=== PATIENT | male | born 1970 | race African-American/Black ===

== ENCOUNTER 2017-06-22 08:00 | Outpatient (RCR) | payer OTHER ==
[2015-03-30 12:35] VITALS: Ht 172.7 cm; Wt 105.3 kg
[2017-04-06 08:23] VITALS: BP 161/111
[2017-04-06] MEDS: NS(*) 0.9% 1000 ML BAG 1,000 ML IV PRN (15:28)
[2017-04-20] MEDS: NS(*) 0.9% 1000 ML BAG 1,000 ML IV PRN (11:00)
[2017-04-20 11:10] VITALS: BP 141/91
--- NOTE | 2017-04-22 05:01 | ONCOLOGY FOLLOW UP NOTE ---
EVENT DATE: April 20, 2017 CHIEF COMPLAINT/REASON FOR VISIT Fernando is a very pleasant 46-year-old gentleman with sickle cell SC disease here for followup post hospitalization. HISTORY OF PRESENT ILLNESS Fernando returns. I saw him in early February and he was doing quite well, but had developed multiple sickle cell exacerbations shortly after that. I believe he has gained some weight, developing worsening of his sugars with known type 2 diabetes, as well as concerns for obstructive sleep apnea. He had a sleep study in the spring which was inconclusive, but he has gained some more weight. We did recommend CPAP while he was in the hospital, but he would not wear this. He did not think it made him feel any better. He currently rates his pain as a 7/10 and all over. I would like to refill his non-opiate medications to minimize the use of opiates. I feel he has been leaning on the opiates more recently. He does not feel ready to go back to work as he is worried he is having another exacerbation. He felt well when he was at lower altitude in [place], but has had trouble since coming back from visiting with his ENT there. The intervention did improve his throat, however. We are giving him fluids today and hopeful that this can avoid repeat hospitalization. PAST MEDICAL/SURGICAL HISTORY 1. Sickle cell anemia with crisis. 2. Hemoglobin SC disease. 3. Diabetes mellitus. 4. GERD. 5. Chronic pain due to orthopedic issues related to sickle cell disease. FAMILY HISTORY The patient had a sibling who from this disease. He has multiple other siblings with it. SOCIAL HISTORY The patient works at [employer]. Never smoker. Does not drink significant amount of alcohol. REVIEW OF SYSTEMS CONSTITUTIONAL: No fevers, chills. Positive pain crisis at this time. HEENT: No headache or vision changes. NEUROLOGICAL: Intermittent left arm numbness, unchanged. Good pulses. CARDIOVASCULAR: Intermittent edema, none currently. No chest pain, dyspnea on exertion today. RESPIRATORY: No shortness of breath, wheeze, cough. MUSCULOSKELETAL: Chronic pain in the hips and shoulders bilaterally. GASTROINTESTINAL: No nausea, vomiting. GENITOURINARY: No dysuria or hematuria. PSYCHIATRIC: No anxiety or depression. He is not his usual cheerful self and appears to be in some painful distress. ENDOCRINE: No heat or cold intolerance. SKIN: No concerning rashes or lesions. The remainder of the 14-point review of systems is otherwise negative. PHYSICAL EXAMINATION VITAL SIGNS: Blood pressure 141/91, pulse 80, respiratory rate 16, temperature 97.1 Fahrenheit, oxygen saturation 93% on room air. Pain 7/10, fatigue 6/10. GENERAL: In stable condition, resting comfortably in the chair. Mild to moderate painful distress. HEENT: Normocephalic, atraumatic. CARDIOVASCULAR: Regular rate and rhythm. LUNGS: Clear. MUSCULOSKELETAL: Bilateral chronic shoulder and hip pain. No focus of pain today. The pain is "all over." EXTREMITIES: No clubbing, cyanosis or significant edema. He has had trace edema in the past, but no major edema. Remainder of the physical exam otherwise unremarkable. IMPRESSION AND PLAN Fernando is a pleasant 46-year-old gentleman with the followin. Hemoglobin SC sickle cell disease. 2. Avascular necrosis in chronic pain in multiple joints due to number one. 3. Hot flashes of uncertain etiology. His TSH and testosterone were unremarkable. 4. History of trace edema. Can use Lasix as needed. 5. Recent hospitalizations with sickle cell crisis. I believe he is having multiple contributors to flares including uncontrolled type 2 diabetes, obstructive sleep apnea, but no compliance with CPAP. He does not have a CPAP machine at home. 6. We will refill his monthly medications. He uses a fentanyl patch 100 mcg every three days, as well as Dilaudid 4 mg up to six times a day as needed. We will refill his Skelaxin, Celebrex and Benadryl as needed. He uses lorazepam as a sleeping aid and can take one to two pills for this. 7. I would like him to establish with primary care and we will make arrangements for this. I answered all of his many questions today. Meds refilled. Billing: Return visit level 4. Total time 30 minutes, counseling time 20. MTDD
[2017-05-25 08:18] VITALS: BP 138/88
--- NOTE | 2017-06-12 08:44 | ONCOLOGY FOLLOW UP NOTE ---
EVENT DATE: May 25, 2017 CHIEF COMPLAINT/REASON FOR VISIT Fernando is a pleasant 46-year-old gentleman with sickle cell SD disease, here for followup. HISTORY OF PRESENT ILLNESS Fernando returns. The patient has had multiple sickle cell exacerbations in 2017. I believe that he has gained some weight, developed some worsening of his blood sugar with known type 2 diabetes, as well as some concerns for mild obstructive sleep apnea. His sleep study in 2017 was inconclusive. We recommended CPAP, but he could not tolerate it or wear this. He did not think it made him feel any better. His poor sleep continues to be his chief complaint. He has trouble getting to sleep. He rates his pain at a 4/10 today, which is a good day for him. No recent exacerbations since last month, although he did have multiple exacerbations when he returned from a lower altitude in [place] in the fall of 2016. He has another planned trip in August, and we may consider giving more fluids around that time to prevent exacerbations. He also complains of swelling in his hands and feet and likes to take furosemide to help with this, however, this increases the risk of sickle cell exacerbations. We have discussed this and would like to try to minimize its use as much as possible. He is avoiding it. PAST MEDICAL/SURGICAL HISTORY 1. Sickle cell anemia with crisis. 2. Hemoglobin SC disease. 3. Diabetes mellitus. 4. GERD. 5. Chronic pain due to orthopedic issues related to sickle cell disease. FAMILY HISTORY The patient had a sibling who from this disease. He has multiple other siblings with it. SOCIAL HISTORY The patient works at [employer]. Never smoker. Does not drink significant amount of alcohol. REVIEW OF SYSTEMS CONSTITUTIONAL: No fevers, chills. No pain crisis at this time. HEENT: No headache, vision changes. NEUROLOGIC: Intermittent left arm numbness unchanged. He has excellent peripheral pulses in both arms. CARDIOVASCULAR: Intermittent edema. Some present in the hands after work today. No chest pain or dyspnea on exertion today. No chest syndrome today. RESPIRATORY: No shortness of breath, wheeze, cough. MUSCULOSKELETAL: Chronic pain in the hips and shoulders bilaterally, with known avascular necrosis. GASTROINTESTINAL: No nausea or vomiting. GENITOURINARY: No dysuria or hematuria. PSYCHIATRIC: No anxiety or depression. He is his usual cheerful self again today. ENDOCRINE: No heat or cold intolerance. SKIN: No concerning rashes or lesions. The remainder of the 14-point review of systems is otherwise negative. PHYSICAL EXAMINATION VITAL SIGNS: Blood pressure 138/88, pulse 79, respiratory rate 16, temperature 97.1 degrees Fahrenheit, oxygen saturation 92% on room air, weight 106.6 kg. Pain 4/10, fatigue 4/10. GENERAL: In stable condition, resting comfortably in the chair. HEENT: Normocephalic, atraumatic. CARDIOVASCULAR: Regular rate and rhythm. LUNGS: Clear. MUSCULOSKELETAL: Bilateral chronic shoulder and hip pain. EXTREMITIES: Trace edema in the hands. No edema in the legs today. No significant clubbing or cyanosis. The remainder of the full physical exam deferred today to the amount of time spent in counseling and coordination of care. IMPRESSION AND PLAN Fernando is a very pleasant 46-year-old gentleman with the following. 1. Hemoglobin SC sickle cell disease. 2. Avascular necrosis in chronic pain in multiple joints due to number one. 3. Hot flashes of uncertain etiology. His TSH and testosterone were unremarkable. 4. History of trace edema. Can use Lasix as needed. Would like him to avoid the Lasix as much as possible though as it could increase the risk of sickling. 5. Chronic pain. We will refill his pain medications today. He uses a fentanyl patch 100 mcg every three days, as well as Dilaudid 4 mg up to six times a day as needed. We have refilled his Skelaxin, Celebrex and Benadryl. 6. Insomnia. He uses lorazepam as a sleeping aid. He does not feel this is successful. He would like to try Ambien. I advised him he needs to be very careful with this as he could be more drowsy and at risk for falls or sleeping in and missing work. He expresses understanding about this. 7. I continue to want him to establish with primary care. I answered all of his questions today. Medications refilled. Billing: Return visit level 3. Total time 20 minutes, counseling time 15. MTDD
[~2017-06-22] VITALS: Ht 172.7 cm; Wt 105.3 kg
[~2017-06-22 08:00] MED LIST: AMOX1TAB9 PO; CELE-1 PO; CYCL10TA29 PO; DEXTROSE 5%(*) 100 ML BAG 100 ML IVPB PRN; DOCU-416 PO; FENT-19 TD; FENT-21 TD; FENT-23 TD; FENT1PAT40 TD; FOLI-68 PO; FURO20TA19 PO; HYDR-4309 PO; HYDR-5517 PO; HYDR1LIQ6 PO; HYDR25SU35 RC; HYDR25SU51 RC; HYDR2TAB74 PO; LIDO5T TP; LIDOCAINE/SOD BICARB 8.4% SYR ID PRN; LISI-362 PO; LORA-630 PO; MELO-207 PO; META800T18 PO; METF-410 PO; METHYLPRED PO; NS(*) 0.9% 100 ML BAG 100 ML IVPB PRN; OXYC-373 PO; OXYC-823 PO; OXYC-865 PO; OXYC-869 PO; OXYC20TA61 PO; OXYC5CAP21 PO; OXYC5TAB38 PO; PANT40TA65 PO; PROM-110 PO; ZOLP-1 PO; [UNRECOGNIZED DRUG - CODE] PO
[2017-06-22 08:29] VITALS: BP 135/95
[2017-06-22] MEDS ORDERED: FENT-23 TD (08:49)
[2017-06-22] MEDS ORDERED: LORA-630 PO (08:49)
[2017-06-22] MEDS ORDERED: HYDR-5517 PO (08:49)
[2017-06-22] MEDS ORDERED: NS(*) 0.9% 500 ML BAG 500 ML IV PRN (08:55)
[2017-06-22] MEDS ORDERED: ZOLP-1 PO (13:39)
[2017-06-23] MEDS ORDERED: ZOLP-1 PO (15:45)
--- NOTE | 2017-06-26 20:12 | ONCOLOGY FOLLOW UP NOTE ---
EVENT DATE: 06/22/2017 CHIEF COMPLAINT/REASON FOR VISIT Mr. Estevez is a pleasant 46-year-old gentleman with sickle cell SC disease here for followup. HISTORY OF PRESENT ILLNESS Fernando returns. The patient continues to have multiple sickle cell exacerbations in 2017. I believe this is due to obstructive sleep apnea, some weight gain and worsening of his blood sugars. His sleep study 2017 was considered inconclusive. We recommended a trial of CPAP, but he could not tolerate or wear this. He did not think it made him feel any better. The pain crises continue to be his biggest complaints. He also complains of trouble getting to sleep. He rates his pain at a 5/10 today, which is an average day for him. He was able to go to work, but had to push through. He has another trip planned for [place] in August around his birthday, and we may consider giving him more fluids around that time to prevent exacerbations. He does think the fluids make him feel slightly better and have less frequent exacerbations, so we may try this as a maintenance approach. We do have issues of swelling in his hands and feet at times, so this is a difficult balance. PAST MEDICAL/SURGICAL HISTORY 1. Sickle cell anemia with crisis. 2. Hemoglobin SC disease. 3. Diabetes mellitus. 4. GERD. 5. Chronic pain due to orthopedic issues related to sickle cell disease. FAMILY HISTORY The patient had a sibling who from this disease. He has multiple other siblings with it. SOCIAL HISTORY The patient works at [employer] Never smoker. Does not drink significant amount of alcohol. REVIEW OF SYSTEMS CONSTITUTIONAL: No fevers, chills. No pain crisis at this time. HEENT: No headache, vision changes. NEUROLOGIC: Intermittent left arm numbness unchanged. He has excellent peripheral pulses in both arms. CARDIOVASCULAR: Intermittent edema. Some present in the hands after work today. No chest pain or dyspnea on exertion today. No chest syndrome today. RESPIRATORY: No shortness of breath, wheeze, cough. MUSCULOSKELETAL: Chronic pain in the hips and shoulders bilaterally, with known avascular necrosis. GASTROINTESTINAL: No nausea or vomiting. GENITOURINARY: No dysuria or hematuria. PSYCHIATRIC: No anxiety or depression. He is his usual cheerful self again today. ENDOCRINE: No heat or cold intolerance. SKIN: No concerning rashes or lesions. The remainder of the 14-point review of systems is otherwise negative. PHYSICAL EXAMINATION VITAL SIGNS: Blood pressure 135/95, pulse 68, respiratory rate 16, temperature 97.6 Fahrenheit, oxygen saturation 93% on room air. Weight 105.3 kg. Pain 5/10 , fatigue 5/10. GENERAL: In stable condition, resting comfortably in the chair. HEENT: Normocephalic, atraumatic. MUSCULOSKELETAL: Bilateral chronic shoulder and hip pain unchanged. Some reduced range of motion, mild. EXTREMITIES: Trace edema in the hands and feet, improved compared to prior exams in 2017. The remainder of the full physical exam deferred today to amount of time spent in counseling and coordination of care. IMPRESSION AND PLAN Fernando is a very pleasant 46-year-old gentleman with the followin. Hemoglobin SC disease. 2. Avascular necrosis with chronic pain in multiple joints due to number one. 3. Hot flashes of unclear etiology with a normal thyroid stimulating hormone and testosterone. These have improved. 4. History of edema. Would like to avoid Lasix as it could increase the risk of sickle cell crisis. We have used Lasix in the past when the edema was significant. He does feel better when we give IV fluids, and we are going to try another trial of weekly IV fluids, but only a half liter instead of a full liter. 5. Chronic pain. We will refill his pain medications today. This includes a fentanyl patch 100 mcg every three days, as well as Dilaudid 4 mg up to six times a day as needed. 6. Insomnia. I answered all of his questions today. Medications refilled. Billing: Return visit level 4. Total time 30 minutes, counseling time 20. MTDD
--- NOTE | 2017-06-28 09:47 | ONCOLOGY FOLLOW UP NOTE ---
EVENT DATE: May 25, 2017 CHIEF COMPLAINT/REASON FOR VISIT Fernando is a pleasant 46-year-old gentleman with sickle cell SC disease here for followup. HISTORY OF PRESENT ILLNESS Fernando returns. The patient has had multiple sickle cell exacerbations in 2017. I believe that he has gained some weight, developed some worsening of his blood sugars with known type 2 diabetes, as well as some concerns for mild obstructive sleep apnea. His sleep study in 2017 was inconclusive. We recommended CPAP, but he could not tolerate or wear this. He did not think it made him feel any better. His poor sleep continues to be his chief complaint. He has trouble getting to sleep. He rates his pain at a 4/10, which is a good day for him. No recent exacerbations since last month, although he did have multiple exacerbations when he returned from a lower altitude in [place] in the fall of 2016. He has another planned trip in August. We may consider giving more fluids around that time to prevent exacerbations. He also complains of swelling in his hands and feet and likes to take furosemide to help with this, however, this increases the risk of sickle cell exacerbations. We discussed this and would like to try to minimize its use as much as possible. He is avoiding it. PAST MEDICAL/SURGICAL HISTORY 1. Sickle cell anemia with crisis. 2. Hemoglobin SC disease. 3. Diabetes mellitus. 4. GERD. 5. Chronic pain due to orthopedic issues related to sickle cell disease. FAMILY HISTORY The patient had a sibling who from this disease. He has multiple other siblings with it. SOCIAL HISTORY The patient works at [employer]. Never smoker. Does not drink significant amount of alcohol. REVIEW OF SYSTEMS CONSTITUTIONAL: No fevers, chills. No pain crisis at this time. HEENT: No headache or vision changes. NEUROLOGIC: Intermittent left arm numbness unchanged. He has excellent peripheral pulses in both arms. CARDIOVASCULAR: Intermittent edema, some present in the hands after work today. No chest pain, dyspnea on exertion today. No chest syndrome today. RESPIRATORY: No shortness of breath, wheeze, cough. MUSCULOSKELETAL: Chronic pain in the hips and shoulders bilaterally with known avascular necrosis. GASTROINTESTINAL: No nausea, vomiting. GENITOURINARY: No dysuria or hematuria. PSYCHIATRIC: No anxiety or depression. He is his usual cheerful self again today. ENDOCRINE: No heat or cold intolerance. SKIN: No concerning rashes lesions. The remainder of the 14-point review of systems is otherwise negative. PHYSICAL EXAMINATION VITAL SIGNS: Blood pressure 138/88, pulse 79, respiratory rate 16, temperature 97.1 degrees Fahrenheit, oxygen saturation 92% on room air. Weight 106.6 kg. Pain 4/10, fatigue 4/10. GENERAL: In stable condition, resting comfortably in the chair. HEENT: Normocephalic, atraumatic. CARDIOVASCULAR: Regular rate and rhythm. LUNGS: Clear. MUSCULOSKELETAL: Bilateral chronic shoulder and hip pain. EXTREMITIES: Trace edema in the hands. No edema in the legs today. No significant clubbing or cyanosis. Remainder of full physical exam deferred today to amount of time spent in counseling and coordination of care. IMPRESSION AND PLAN Fernando is a very pleasant 46-year-old gentleman with the followin. Hemoglobin SC sickle cell disease. 2. Avascular necrosis in chronic pain in multiple joints due to number one. 3. Hot flashes of uncertain etiology. His TSH and testosterone were unremarkable. 4. History of trace edema. Can use Lasix as needed.: Would like him to avoid the Lasix as much as possible though as it could increase the risk of sickling. 5. Chronic pain. We will refill his pain medications today. He uses a fentanyl patch 100 mcg every three days, as well as Dilaudid 4 mg up to six times a day as needed. We have refilled his Skelaxin, Celebrex and Benadryl. 6. Insomnia. He uses lorazepam as a sleeping aid. He does not feel this is successful. He would like to try Ambien. I advised him he needs to be very careful with this as he could be more drowsy and at risk for falls or sleeping in and missing work. He expresses understanding about this. 7. I continue to want him to establish with primary care. I answered all of his questions today. Medications refilled. Billing: Return visit level 3. Total time 20 minutes, counseling time 15. MTDD
== END 2017-07-02 ==
LOC: ONC 08:00
PROVIDERS: ATTEND Internal Medicine Medical Oncology
DX: D57.1 Sickle-cell disease without crisis (principal); I96 Gangrene, not elsewhere classified; G47.33 Obstructive sleep apnea (adult) (pediatric); G89.29 Other chronic pain
CPT/HCPCS: 96360; 96361; 99212; J7030; J7040

== ENCOUNTER 2017-10-19 13:27 | Outpatient (RCR) | payer BC, OTHER ==
[2015-03-30 12:35] VITALS: Ht 172.7 cm; Wt 102.3 kg
[2017-07-27 08:32] VITALS: BP 160/93
--- NOTE | 2017-07-28 09:12 | [facility] ONCOLOGY NOTE ---
DATE OF VISIT: July 27, 2017 CHIEF COMPLAINT/REASON FOR VISIT Mr. Estevez is a pleasant 46-year-old gentleman with sickle cell SC disease here for followup. HISTORY OF PRESENT ILLNESS Fernando returns. The patient continues to have frequent, multiple sickle cell exacerbations in 2016 and 2017. The increased frequency may be due to weight gain and obstructive sleep apnea as well as worsening of his blood sugars. His brother has the same type of sickle cell disease (SC disease) according to Fernando , and diabetic affects him as well. His sleep study in earlier 2016 was considered inconclusive, and I have arranged follow up with Dr. Caldwell for later this week. The patient is able to work today, however, he rates his pain at a 6/10 and feels that it is very close to needing to go the hospital. When he traveled to [place] late in 2016, he felt much better. He has another trip planned in August. When he returns back from these trips, he frequently has an exacerbation. PAST MEDICAL/SURGICAL HISTORY 1. Sickle cell anemia with crisis. 2. Hemoglobin SC disease. 3. Diabetes mellitus. 4. GERD. 5. Chronic pain due to orthopedic issues related to sickle cell disease. 6. Sleep disordered breathing and poor sleep. FAMILY HISTORY The patient had a sibling who from the disease as well as multiple siblings with it. SOCIAL HISTORY The patient works at [employer]. Never smoker. Denies significant alcohol use. REVIEW OF SYSTEMS CONSTITUTIONAL: No fevers, chills. Moderate pain at this time. HEENT: No headache, vision changes. EXTREMITIES: Intermittent edema. At times, it has been bothersome in the hands. No complaints about this today. NEUROLOGICAL: Intermittent left arm numbness unchanged. Good peripheral pulses and use of the arms. RESPIRATORY: No shortness of breath, wheeze, cough. MUSCULOSKELETAL: Chronic pain in the hips and shoulders with known avascular necrosis. GASTROINTESTINAL: No nausea or vomiting. GENITOURINARY: No dysuria or hematuria. PSYCHIATRIC: No anxiety or depression. ENDOCRINE: No heat or cold intolerance. SKIN: No concerning rashes or lesions. The remainder of the 14-point review of systems is otherwise negative. PHYSICAL EXAMINATION VITAL SIGNS: Blood pressure 160/93, pulse 94, respiratory rate 16, temperature 97.2 Fahrenheit, oxygen saturation 93% on room air. Weight 104.9 kg. Pain 6/10 , fatigue 6/10. GENERAL: Stable condition, resting comfortably in the chair. HEENT: Normocephalic, atraumatic. MUSCULOSKELETAL: Bilateral shoulder and hip pain unchanged. Some reduced range of motion mildly in the right shoulder. He has had surgery on that in 2017. EXTREMITIES: Trace edema in the hands and feet. Remainder of physical exam unremarkable. IMPRESSION AND PLAN Fernando is a pleasant 46-year-old gentleman with the followin. Hemoglobin SC disease. 2. Avascular necrosis with chronic pain. 3. Hot flashes of unclear etiology with a normal TSH and testosterone. Thankfully these have improved. 4. Edema. Would like to avoid Lasix, as it could increase the risk of a sickle cell crisis. 5. Hypertension. Recommend follow up with his primary care provider. 6. Chronic pain. We refilled his pain medications again today. This includes fentanyl patch of 125 mcg in two patches every three days as well as Dilaudid 4 mg up to six times a day. I advised him I do not think he should also have oxycodone, which has worked for him in the past, as Dilaudid is more potent. 7. Insomnia. Will refill his zolpidem. I do believe he has sleep disordered breathing despite the indeterminate sleep study in 2017. Recommend followup with Dr. Caldwell later this week. I believe we are at the point where Fernando needs to make a change. I would like him to visit with Dr. Lorenzo to discuss other options for his sickle cell disease. He does do better at low altitude, and I recommend he consider moving back to his former home in [place], although this would uproot his life. It is difficult to make this recommendation, but I do not have other good options to prevent the frequent exacerbations and high use of pain medicine. Billing: Return visit level 4. Total time 30 minutes, counseling time 20. MTDD
[2017-08-17 08:38] VITALS: BP 152/91
--- NOTE | 2017-08-18 18:07 | ONCOLOGY FOLLOW UP NOTE ---
EVENT DATE: August 17, 2017 CHIEF COMPLAINT/REASON FOR VISIT Mr. 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 HISTORY OF PRESENT ILLNESS Mr. Estevez returns. Since our last visit he met with Dr. Lorenzo [facility] in [place]. They had an excellent discussion ranging from all different types of treatment for his sickle cell disease. They discussed his chronic pain management as well as considerations of adjustment in altitude. At this time he would like to continue to live in [place], although when he traveled to [place] in 2017 he felt much better. He has a planned trip later this month as well. He has a sibling with hemoglobin SC disease that lives in [place] and has a very similar presentation. We discussed new a medication for his sickle cell disease as well. We also discussed consideration of increasing his metformin as his glucose measurements have ranged between 95 and 135. His brother is on metformin twice a day and he is willing to do this. I would only like to change one thing at a time, so we will not pursue the new medicine just yet. Please see the documents by Dr. Lorenzo for more detail on that. PAST MEDICAL/SURGICAL HISTORY 1. Sickle cell anemia with crisis. 2. Hemoglobin SC disease. 3. Diabetes mellitus. 4. GERD. 5. Chronic pain due to the orthopedic issues related to his sickle cell disease. 6. Sleep disordered breathing, and following with Dr. Caldwell. FAMILY HISTORY The patient does have a sibling who from the disease, as well as multiple siblings with the disease. Some with hemoglobin SS disease and others with hemoglobin SC like the patient. SOCIAL HISTORY The patient works at [employer]. Never smoker. Denies significant alcohol use. REVIEW OF SYSTEMS CONSTITUTIONAL: No fevers, chills. Mild pain at this time. He is having a good day today. HEENT: No headache or vision changes. EXTREMITIES: Intermittent edema. No complaints today. He does feel better when he is on the lisinopril with controlling his blood pressure. MUSCULOSKELETAL: Chronic pain in the hips and shoulders with known avascular necrosis continues today. CARDIOVASCULAR: No chest pain, dyspnea on exertion or edema, acute chest syndrome. RESPIRATORY: No shortness of breath, wheeze, cough. GASTROINTESTINAL: No nausea, vomiting, diarrhea. GENITOURINARY: No dysuria or hematuria. PSYCHIATRIC: No anxiety or depression. ENDOCRINE: No heat or cold intolerance. SKIN: No concerning rashes or lesions. The remainder of the 14-point review of systems is otherwise negative. PHYSICAL EXAMINATION VITAL SIGNS: Blood pressure 152/91. I would like him to continue the lisinopril, as it was recently stopped. Pulse 87, respiratory rate 16, temperature 97 Fahrenheit, oxygen saturation 92% on room air. Weight 104.9 kg. Pain 6/10 in the hips, fatigue 4/10. GENERAL: In stable condition, resting comfortably in the chair. HEENT: Normocephalic, atraumatic. LUNGS: Clear. MUSCULOSKELETAL: Continued bilateral hip and shoulder pain unchanged. He had surgery on his right shoulder with mild improvement in 2017. EXTREMITIES: Trace edema in the hands and feet. Remainder of the physical exam unremarkable. IMPRESSION AND PLAN Mr. Estevez is a very pleasant 47-year-old gentleman with the followin. Hemoglobin sickle cell disease. 2. Avascular necrosis due to number one. 3. Chronic pain syndrome due to numbers one and two. 4. Edema. Try to avoid Lasix, but use as needed. 5. Hypertension. Would like to use lisinopril, and continue to recommend followup with his primary care provider. 6. Insomnia. Use zolpidem as needed. 7. Appreciate his visit with Dr. Lorenzo. We could consider the new sickle cell therapy in the next few months. With regard to his diabetes, we are increasing his metformin to two pills a day and I would only like to make one change at a time. I will continue to see him monthly. We discussed consideration of moving to a lower altitude as well as his new medication. He is not interested in bone marrow transplant due to the correction risks, and I do not feel that Dr. Lorenzo strongly recommends it either. Currently controlled, but does have his chronic pain syndrome, which will not change. I answered all of his questions today. Billing: Return visit level 4. Total time 30 minutes, counseling time 20. MTDD
[2017-09-21 08:19] VITALS: BP 143/88
[2017-09-21 08:32] LABS: PLATELET COUNT, AUTOMATED 254 K/uL (150-450)
--- NOTE | 2017-09-22 13:53 | SCHUSTER ONCOLOGY NOTE ---
EVENT DATE: September 21, 2017 CHIEF COMPLAINT/REASON FOR VISIT Mr. Estevez is a very pleasant 47-year-old gentleman with hemoglobin SC disease here for followup. HISTORY OF PRESENT ILLNESS Mr. Estevez returns. He continues to struggle with his chronic pain management, but does feel that it is overall stable. He would like to continue living in [place], although he does note he feels better when he travels to [place] at lower altitude. He has a trip planned later this spring. He has a sibling with hemoglobin SC disease in [place] with a very similar presentation that includes diabetes as well. Unfortunately, he shares with me that his eldest brother had to have a leg amputation this last month. We added metformin recently, and he is taking it now, and we will see how his blood sugars are reacting. His blood sugars had ranged between 95-135. Please see the documentation by Dr. Lorenzo in [place] for his recent annual sickle cell consultation there. PAST MEDICAL/SURGICAL HISTORY 1. Sickle cell anemia with crisis. 2. Hemoglobin SC disease. 3. Diabetes mellitus. 4. GERD. 5. Chronic pain due to the orthopedic issues related to his sickle cell disease. 6. Sleep disordered breathing, and following with Dr. Caldwell. FAMILY HISTORY The patient does have a sibling who from the disease, as well as multiple siblings with the disease. Some with hemoglobin SS disease and others with hemoglobin SC like the patient. SOCIAL HISTORY The patient works at [employer]. Never smoker. Denies significant alcohol use. REVIEW OF SYSTEMS CONSTITUTIONAL: No fevers, chills. Significant pain, but at his baseline. HEENT: No headache or vision changes. EXTREMITIES: Intermittent edema. MUSCULOSKELETAL: Chronic hip and shoulder pain with known avascular necrosis. CARDIOVASCULAR: No chest pain, dyspnea on exertion, acute chest syndrome symptoms. RESPIRATORY: No shortness of breath, wheeze, cough. GASTROINTESTINAL: No nausea or vomiting. GENITOURINARY: No dysuria or hematuria. PSYCHIATRIC: No anxiety or depression. ENDOCRINE: No heat or cold intolerance. SKIN: No concerning rashes or lesions. The remainder of the 14-point review of systems is otherwise negative. PHYSICAL EXAMINATION VITAL SIGNS: Blood pressure 143/88, pulse 81, respiratory rate 16, temperature 97.2 Fahrenheit, oxygen saturation 92% on room air. Weight 101.8 kg. Pain 3/10 , fatigue 3/10. GENERAL: Stable condition, resting comfortably in the chair. HEENT: Normocephalic, atraumatic. LUNGS: Clear. MUSCULOSKELETAL: Chronic bilateral hip and shoulder pain unchanged. EXTREMITIES: Trace edema in the hands and feet, has been worse previously. Remainder of the physical exam unremarkable. IMPRESSION AND PLAN Mr. Estevez is a very pleasant 47-year-old gentleman with the followin. Hemoglobin sickle cell disease. 2. Avascular necrosis due to #1. 3. Chronic pain due to #1 and #2. 4. Intermittent edema. Will try to avoid Lasix, but use as needed. Discussed this again today. 5. Hypertension. Continue the lisinopril, which has been helpful. 6. Insomnia. Use zolpidem as needed. I answered all of his questions today. We will refill his medications. No change in his medications. Billing: Return visit level 4. Total time 30 minutes, counseling time 20. MTDD
[~2017-10-19] VITALS: Ht 172.7 cm; Wt 102.3 kg
[~2017-10-19 13:27] MED LIST changes: -DEXTROSE 5%(*) 100 ML BAG 100 ML IVPB PRN; +FENT-17 TD; -LIDOCAINE/SOD BICARB 8.4% SYR ID PRN; -NS(*) 0.9% 100 ML BAG 100 ML IVPB PRN
[2017-10-19 13:47] VITALS: BP 130/75
[2017-10-19 14:12] LABS: PLATELET COUNT, AUTOMATED 324 K/uL (150-450)
[2017-10-19] MEDS ORDERED: FENT-23 TD (14:36)
[2017-10-19] MEDS ORDERED: HYDR-5517 PO (14:36)
[2017-10-19] MEDS ORDERED: ZOLP-1 PO (14:36)
[2017-10-19] MEDS ORDERED: LORA-630 PO (14:36)
[2017-10-19] MEDS ORDERED: FENT-17 TD (14:36)
[2017-10-19] MEDS ORDERED: PROM-110 PO (14:36)
--- NOTE | 2017-10-24 14:53 | ONCOLOGY FOLLOW UP NOTE ---
EVENT DATE: October 19, 2017 CHIEF COMPLAINT/REASON FOR VISIT Mr. Estevez is a pleasant 47-year-old male with hemoglobin SC disease here for followup. HISTORY OF PRESENT ILLNESS Fernando returns. Overall he is doing moderately well. His pain is rated a 4/10. We discussed in the last few weeks he has had a few pain flares, but avoided going to the emergency room or hospital. During these times his pain flares up to a 10. He states he still tries to take his normal daily dosing of pain medication. I advised him that he will have breakthrough pain and needs to be able to increase and decrease his Dilaudid as needed. On days when his main is mild I would hope that he would take zero to one tablet, whereas days when he has more pain he may need to take two to four tablets. When he is constantly taking the same amount, I am concerned this is part of the reason why he is having the flares, because he is not controlling the pain when he has a minor flare begin. Since the last visit he had a sleep study in [place] which did demonstrate severe sleep apnea. I believe this is a major trigger and reason for why he has had more issues recently. We discussed the importance of CPAP. He does use oxygen at night, but I would recommend strongly he start using CPAP at night. PAST MEDICAL/SURGICAL HISTORY 1. Sickle cell anemia with crisis. 2. Hemoglobin SC disease. 3. Diabetes mellitus. 4. GERD. 5. Chronic pain due to the orthopedic issues related to his sickle cell disease. 6. Sleep disordered breathing, and following with Dr. Caldwell. FAMILY HISTORY The patient does have a sibling who from the disease, as well as multiple siblings with the disease. Some with hemoglobin SS disease and others with hemoglobin SC like the patient. SOCIAL HISTORY The patient works at [employer]. Never smoker. Denies significant alcohol use. REVIEW OF SYSTEMS CONSTITUTIONAL: No fevers, chills. Significant pain, but at his baseline. HEENT: No headache or vision changes. EXTREMITIES: Intermittent edema. MUSCULOSKELETAL: Chronic hip and shoulder pain with known avascular necrosis. CARDIOVASCULAR: No chest pain, dyspnea on exertion, acute chest syndrome symptoms. RESPIRATORY: No shortness of breath, wheeze, cough. GASTROINTESTINAL: No nausea or vomiting. GENITOURINARY: No dysuria or hematuria. PSYCHIATRIC: No anxiety or depression. ENDOCRINE: No heat or cold intolerance. SKIN: No concerning rashes or lesions. The remainder of the 14-point review of systems is otherwise negative. PHYSICAL EXAMINATION VITAL SIGNS: Blood pressure 130/75, pulse 95, respiratory rate 16, temperature 96.6 Fahrenheit, oxygen saturation 90% on room air. Weight 102.3 kg. Pain 4/10 , fatigue 4/10. Fall risk low. GENERAL: Stable condition, resting comfortably in the chair. MUSCULOSKELETAL: Patient continues to have chronic shoulder and knee pain related to his multiple flares of sickle cell anemia. EXTREMITIES: The patient does have trace edema in the left hand. I feel that his pulses are okay. I do not have good explanations for the left hand edema and right arm numbness that occurs at times. Remainder of physical exam otherwise deferred to amount of time spent in counseling and coordination of care. IMPRESSION AND PLAN Mr. Estevez is a very 47-year-old gentleman with the followin. Hemoglobin sickle cell disease. 2. History of multiple sickle cell crises. 3. Chronic pain due to sickle cell. He has met with Dr. Lorenzo in [place]. We are trying to keep him on a stable dose of narcotics, even though he requires high doses with sickle cell anemia. This was reviewed by the sickle cell team in [place] and felt to be appropriate. I did discuss with him today about the importance of treating his sleep apnea. I do believe this would reduce the frequency of exacerbations. I also discussed the importance of having a breakthrough medication, and we are using Dilaudid for this, that would allow him to increase and decrease his pain medication requirements on a day-to-day basis depending on how he was feeling. He expresses understanding with this important plan. I answered all of his questions. We will continue to see him monthly. Billing: Return visit level 4. Total time 30 minutes, counseling time 20. MTDD
== END 2017-10-22 ==
LOC: ONC 13:27
PROVIDERS: ATTEND Internal Medicine
DX: D57.20 Sickle-cell/Hb-C disease without crisis (principal); I96 Gangrene, not elsewhere classified; I10 Essential (primary) hypertension; G47.00 Insomnia, unspecified; G89.29 Other chronic pain
CPT/HCPCS: 36415; 82040; 82247; 82310; 82374; 82435; 82565; 82947; 83615; 84075; 84132; 84155; 84295; 84450; 84460; 84520; 85025; 99212

== ENCOUNTER → 2018-01-05 | Outpatient (CLI) | payer BC ==
[2015-03-30 12:35] VITALS: BMI 37.2
[~2018-01-05] MED LIST changes: +GABA-549 PO; -METF-410 PO; +METF-411 PO
--- NOTE | 2018-01-05 14:31 | RADIOLOGY IMAGING REPORT ---
FAC[place] [facility] [place]IENT NAME: Oswaldo Estevez : 1970 MR: [id number] V: [id number] EXAM DATE: ORDERING PHYSICIAN: MANNY CHANG TECHNOLOGIST: Location: [facility] Patient: Oswaldo Estevez : 1970 Visit/Account:[id number] Date of Sevice: 01/05/2018 HIPS BILATERAL COMPARISONS: Views of the pelvis and both hips dated December 26, 2015 ADDITIONAL PERTINENT HISTORY: Bilateral hip pain FINDINGS: Osseous structures: Continued increased bony density within the femoral heads bilaterally again trisha tible with underlying previous osteonecrosis. No new bony abnormalities from previous exam. Joint spaces: Minimal joint space narrowing involving the superior lateral aspects of both hip joints . Surrounding soft tissues: Negative. IMPRESSION: 1. Continued findings of underlying osteonecrosis involving both femoral heads. 2. Mild osteoarthritic changes involving both hips. 3. No acute appearing bony abnormalities. Report Dictated By: Weston Montague MD at 01/05/2018 2:26 PM Report E-Signed By: Weston Montague MD at 01/05/2018 2:28 PM WSN:[id number]
== END ==
LOC: RAD 10:56
PROVIDERS: ATTEND Internal Medicine
DX: M87.852 Other osteonecrosis, left femur (principal); M87.851 Other osteonecrosis, right femur
CPT/HCPCS: 73522

== ENCOUNTER 2018-01-14 23:23 | Emergency (ER) | payer BC ==
[2015-03-30 12:35] VITALS: Wt 104.5 kg
[2018-01-14 23:30] VITALS: BP 107/94
--- NOTE | 2018-01-14 23:50 | ER Report ---
History and Physical Time Seen By : 23:49 Hx. of Stated Complaint: LEFT WORK BECAUSE BOTH SHOULDERS AND BOTH HIPS HURT. STATES IT'S CHRONIC PAIN AND ALL JOINTS NEED REPLACING HPI/ROS CHIEF COMPLAINT: B/l hip and shoulder pain HISTORY OF PRESENT ILLNESS: Patient is a 47-year-old male here with complaints of bilateral hip and shoulder pain. Patient has a known history of chronic pain and sickle cell. Patient is treated with multiple home medications including hydromorphone, fentanyl patches however reports that his pain has increased over the last day. He reportedly left work due to pain. Patient is nontoxic appearing at time of evaluation and in no acute distress. REVIEW OF SYSTEMS: Constitutional: No fever, no chills. Eyes: No discharge. ENT: No sore throat. Cardiovascular: No chest pain, no palpitations. Respiratory: No cough, no shortness of breath. Gastrointestinal: No abdominal pain, no vomiting. Genitourinary: No hematuria. Musculoskeletal: No back pain. Skin: No rashes. Neurological: No headache. Allergies: Coded Allergies: ketorolac (Verified Allergy, Intermediate, SOB, 01/14/18) morphine (Verified Allergy, Intermediate, SOB, 01/14/18) Home Meds Active Scripts Prednisone (PREDNISONE) 20 Mg Tablet, 40 MG PO QDAY for 5 Days, #10 TAB Prov:DAVIDSON HEAD DO 01/15/18 Fentanyl 50 Mcg Patch (FENTANYL 50 MCG PATCH) 1 Each Patch.td72, 1 EACH TD Q72H , #10 PATCH.72H Prov:MANNY CHANG MD 01/12/18 Zolpidem Tartrate (AMBIEN) 5 Mg Tablet, 1 TAB PO QHS, #30 TAB Prov:MANNY CHANG MD 01/12/18 Lorazepam (LORAZEPAM) 0.5 Mg Tablet, 0.5-1 MG PO Q4-6H for sleep or procedure for 30 Days, #50 TAB Prov:MANNY CHANG MD 01/12/18 Fentanyl 100 Mcg Patch (FENTANYL 100 MCG PATCH) 1 Each Patch.td72, 1 EACH TD Q72H, #10 PATCH.72H 0 Refills Prov:MANNY CHANG MD 01/12/18 Hydromorphone Hcl (DILAUDID) 4 Mg Tablet, 4-8 MG PO Q6H Y for SEVERE PAIN, #100 MCG Prov:MANNY CHANG MD 01/12/18 Promethazine Hcl (PROMETHAZINE HCL) 25 Mg Tablet, 25 MG PO Q8H, #30 TAB 6 Refills Prov:MANNY CHANG MD 10/19/17 Furosemide (LASIX) 20 Mg Tablet, 0.5 TAB PO DAILY Y for edema for 30 Days, #30 TAB Prov:MANNY CHANG MD 09/21/17 Metformin Hcl (METFORMIN HCL) 500 Mg Tablet, 1 TAB PO BID, #60 TAB 11 Refills Prov:MANNY CHANG MD 09/21/17 Pantoprazole Sodium (PANTOPRAZOLE SODIUM) 40 Mg Tablet.dr, 40 MG PO QDAY, #30 TAB.SR 6 Refills Prov:MANNY CHANG MD 09/21/17 Celecoxib (CELEBREX) 200 Mg Capsule, 200 MG PO BID for PAIN, #60 CAPSULE 6 Refills Prov:MANNY CHANG MD 09/21/17 Lisinopril (LISINOPRIL) 10 Mg Tablet, 10 MG PO BID, #60 TAB 11 Refills Prov:MANNY CHANG MD 09/21/17 Folic Acid (FOLIC ACID) 1 Mg Tablet, 1 MG PO QDAY, #90 TAB 3 Refills Prov:OLEGARIO FENTON NEON SIGN SERVICER-BC, ONC 09/08/16 Reported Medications Gabapentin (GABAPENTIN) 300 Mg Capsule, 300 MG PO BID, CAPSULE 12/02/17 [Methylpred] No Conflict Check, 4 MG PO DAILY 04/06/17 Discontinued Scripts Meloxicam (MELOXICAM) 15 Mg Tablet, 15 MG PO QDAY, #30 TAB.SL 6 Refills Prov:MANNY CHANG MD 09/21/17 Metaxalone (SKELAXIN) 800 Mg Tablet, 1 TAB PO TID, #60 TAB 3 Refills Prov:MANNY CHANG MD 04/20/17 Hx Smoking: No Smoking Status: Never Smoker Exposure to Second Hand Smoke?: No Hx Substance Use Disorder: No Hx Alcohol Use: Yes Constitutional Vital Sign - Last 24 Hours 01/14/18 23:30 Temp 97.9 Pulse 90 Resp 12 B/P (MAP) 107/94 Pulse Ox 93 O2 Delivery Room Air Physical Exam General Appearance: The patient is alert, has no immediate need for airway protection and no signs of toxicity. Eyes: Pupils equal and round no pallor or injection. ENT, Mouth: Mucous membranes are moist. Respiratory: There are no retractions, lungs are clear to auscultation. Cardiovascular: Regular rate and rhythm. Gastrointestinal: Abdomen is soft and non tender, no masses, bowel sounds normal. Neurological: No focal neurological deficits Skin: Warm and dry, no rashes. Musculoskeletal: Neck is supple non tender. Extremities are nontender, nonswollen and have full range of motion. DIFFERENTIAL DIAGNOSIS: After history and physical exam differential diagnosis was considered for arthritis, fibromyalgia, sickle cell exacerbation, trauma Medical Decision Making ED Course/Re-evaluation ED Course Patient is a 47-year-old male here with complaints of chronic hip and shoulder pain which seems to be worsening today prompting patient to leave work.. Patient was advised to follow-up with his prescribing physician for increase in chronic pain medication dose. I gave the patient an injection of Dilaudid, he was started on prednisone for an alternate pain relief strategy. Patient was given a prescription for prednisone and was stable at time of discharge. Decision to Disposition Date: Jan 15, 2018 Decision to Disposition Time: 00:12 Depart Departure Latest Vital Signs Vital Signs Date Time Temp Pulse Resp B/P (MAP) Pulse Ox O2 Delivery O2 Flow Rate FiO2 01/14/18 23:30 97.9 90 12 107/94 93 Room Air Impression: Primary Impression: Joint pain Condition: Improved Disposition: HOME OR SELF-CARE Referrals: PAULINA TROTTER MD (PCP) New Scripts Prednisone (PREDNISONE) 20 Mg Tablet 40 MG PO QDAY for 5 Days, #10 TAB Prov: DAVIDSON HEAD DO 01/15/18 Patient Instructions: Arthralgia (ED) Additional Instructions: Please continue your current medications as prescribed. Please call your prescribing physician if you feel that her current medication regimen is not adequate. Please take prednisone 40 mg daily for 5 days. Please return promptly should develop fevers, chest pain, shortness of breath, worsening pain, nausea, vomiting, blood in your stools or urine. DAVIDSON HEAD DO Jan 14, 2018 23:49
[2018-01-15] MEDS ORDERED: predniSONE 20 MG TAB PO ONE (00:05)
[2018-01-15] MEDS ORDERED: HYDROmorphone HCL 2 MG/ML SDV IM ONE (00:05)
[2018-01-15] MEDS ORDERED: PRED20TA6 PO (00:17)
== END 2018-01-15 00:20 | disposition home or self-care (01) ==
LOC: ER 23:26
DX: M25.552 Pain in left hip (principal); M25.551 Pain in right hip; M25.512 Pain in left shoulder; M25.511 Pain in right shoulder; D57.1 Sickle-cell disease without crisis
CPT/HCPCS: 96372; 99283; J1170; J7512

== ENCOUNTER → 2018-03-01 | Outpatient (RCR) | payer BC ==
[2015-03-30 12:35] VITALS: Wt 105.6 kg
[2017-12-02 08:14] VITALS: BP 126/91
[2017-12-02 08:33] LABS: PLATELET COUNT, AUTOMATED 254 K/uL (150-450)
--- NOTE | 2017-12-02 16:52 | ONCOLOGY FOLLOW UP NOTE ---
EVENT DATE: December 02, 2017 CHIEF COMPLAINT/REASON FOR VISIT Mr. Estevez is a very pleasant 47-year-old gentleman with hemoglobin SC disease, here for followup after a recent hospitalization for a sickle cell flare. HISTORY OF PRESENT ILLNESS Fernando returns. Overall he is doing okay. He rates his pain at a 6/10 and it is localized in the hips. It has been approximately a year-plus since the last x- ray of his hips, and I know that he will require hip replacement someday. We are trying to delay that as long as possible though given his youth. The pain has increased and is getting in the way of work. I do believe he is able to go back to work now though. He had a recent flare which he thinks may be associated with an infection that required a hospitalization down in [place] a few weeks ago. He prefers to go to the hospital there instead of [place], although I feel that his treatment would be the same at either location. He is having more consistent flares living at altitude and more baseline pain. We discussed options, and we do not have many. He has seen by colleagues in [place] recently for a consultation, and they concur that he will have chronic pain from his disease. After discussion we plan to increase the fentanyl patch one step to 150 mcg. He continues to take his Dilaudid as needed as well as other medications. I do feel he is becoming more reliant on opiates as opposed to non-narcotic medications. This is likely the natural history of his chronic pain syndrome. He does have severe sleep apnea and I have encouraged him to consider CPAP. No other new complaints. He is not ill today and would like to return to work tomorrow. This is reasonable. PAST MEDICAL/SURGICAL HISTORY 1. Sickle cell anemia with crisis. 2. Hemoglobin SC disease. 3. Diabetes mellitus. 4. GERD. 5. Chronic pain due to the orthopedic issues related to his sickle cell disease. 6. Sleep disordered breathing, and following with Dr. Caldwell. FAMILY HISTORY The patient does have a sibling who from the disease, as well as multiple siblings with the disease. Some with hemoglobin SS disease and others with hemoglobin SC like the patient. SOCIAL HISTORY The patient works at [email or web address]. Never smoker. Denies significant alcohol use. REVIEW OF SYSTEMS CONSTITUTIONAL: No fevers, chills. Significant pain, but at his baseline. HEENT: No headache or vision changes. EXTREMITIES: Intermittent edema. MUSCULOSKELETAL: Chronic hip and shoulder pain with known avascular necrosis. CARDIOVASCULAR: No chest pain, dyspnea on exertion, acute chest syndrome symptoms. RESPIRATORY: No shortness of breath, wheeze, cough. GASTROINTESTINAL: No nausea or vomiting. GENITOURINARY: No dysuria or hematuria. PSYCHIATRIC: No anxiety or depression. ENDOCRINE: No heat or cold intolerance. SKIN: No concerning rashes or lesions. The remainder of the 14-point review of systems is otherwise negative. PHYSICAL EXAMINATION VITAL SIGNS: Blood pressure 126/91, pulse 77, respiratory rate 16, temperature 97.4 Fahrenheit, oxygen saturation 93% on room air. Weight 103.5 kg. Pain 6/10 , fatigue 4/10. GENERAL: Stable condition, resting comfortably in the chair. HEENT: Normocephalic, atraumatic. SKIN: No concerning findings. MUSCULOSKELETAL: Continues to have chronic shoulder, knee and hip pain. His biggest complaint today is bilateral hip pain. EXTREMITIES: Trace edema in the left hand is still present. I do not have a good etiology for this. His pulses have been okay. No other concerning findings no physical exam, and the remainder of exam deferred today to amount of time spent in counseling and coordination of care. IMPRESSION AND PLAN Mr. Estevez is a pleasant 47-year-old gentleman with the followin. Hemoglobin sickle cell disease. 2. History of multiple sickle cell crises. 3. Chronic pain due to sickle cell anemia. Plan to increase his fantanyl one step as we are continuing to have major issues with pain that are interfering with work. He does feel well enough today to return to work. 4. Sleep apnea. Recommend CPAP. I do believe that treating this will help reduce the frequency and severity of exacerbations. I answered all of his questions today. Billing: Return visit level 4. Total time 30 minutes, counseling time 20. MTDD
[2018-01-12 08:10] VITALS: BP 135/79
[2018-01-12 08:31] LABS: PLATELET COUNT, AUTOMATED 243 K/uL (150-450)
--- NOTE | 2018-01-13 04:37 | SCHUSTER ONCOLOGY NOTE ---
EVENT DATE: January 12, 2018 CHIEF COMPLAINT/REASON FOR VISIT Mr. Estevez is a very pleasant 47-year-old gentleman with sickle cell SC disease, here for followup. HISTORY OF PRESENT ILLNESS Fernando returns. Overall he is doing okay. He continues to rate his pain at a 5 out of 10 focused on the hips. We had a recent hip x-ray since my last visit last month, and I would like him to follow up with orthopedic surgery. I advised him that he will likely need hip replacement someday, but we can hopefully try conservative management or injections in the interim. He is established with the [facility], and I would like him to follow up with them later this summer. He did have a minor flare, but did not require hospitalization last week, and did miss some work, but otherwise is doing okay. No recent infections. We increased his fentanyl patch one step to 150 mcg earlier this summer. We had him meet with the sickle cell specialists including Dr. Lorenzo in [place], who agrees that we are now dealing with chronic pain due to his prior sickle crises and we will need to manage it as a chronic pain syndrome. He does have severe sleep apnea. I have encouraged him to consider using the CPAP machine. No other new complaints. PAST MEDICAL/SURGICAL HISTORY 1. Sickle cell anemia with crisis. 2. Hemoglobin SC disease. 3. Diabetes mellitus. 4. GERD. 5. Chronic pain due to the orthopedic issues related to his sickle cell disease. 6. Sleep disordered breathing, and following with Dr. Caldwell. FAMILY HISTORY The patient does have a sibling who from the disease, as well as multiple siblings with the disease. Some with hemoglobin SS disease and others with hemoglobin SC like the patient. SOCIAL HISTORY The patient works at [employer]. Never smoker. Denies significant alcohol use. REVIEW OF SYSTEMS CONSTITUTIONAL: No fevers, chills. Significant pain, but at his baseline. HEENT: No headache or vision changes. EXTREMITIES: Intermittent edema. MUSCULOSKELETAL: Chronic hip and shoulder pain with known avascular necrosis. CARDIOVASCULAR: No chest pain, dyspnea on exertion, acute chest syndrome symptoms. RESPIRATORY: No shortness of breath, wheeze, cough. GASTROINTESTINAL: No nausea or vomiting. GENITOURINARY: No dysuria or hematuria. PSYCHIATRIC: No anxiety or depression. ENDOCRINE: No heat or cold intolerance. SKIN: No concerning rashes or lesions. The remainder of the 14-point review of systems is otherwise negative. PHYSICAL EXAMINATION VITAL SIGNS: Blood pressure 142/79, pulse 80, respiratory rate 16, temperature 97.2 Fahrenheit, oxygen saturation 92% on room air. Pain 5/10, fatigue 4/10. GENERAL: Stable condition, resting comfortably in the chair. He is his usual cheerful self today. HEENT: Normocephalic, atraumatic. SKIN: No concerning findings. MUSCULOSKELETAL: Continues to have chronic shoulder, knee and hip pain bilaterally. The current biggest issue is bilateral hip pain, right greater than left. EXTREMITIES: Trace edema still present in the left hand. The remainder of physical exam is otherwise unremarkable. IMPRESSION AND PLAN Mr. Estevez is a very pleasant 47-year-old gentleman with the followin. Hemoglobin SC sickle cell anemia. 2. History of multiple sickle cell crises. 3. Chronic pain syndrome due to sickle cell anemia. Increased his fentanyl earlier this year to 150 mcg. 4. Sleep apnea. Recommend CPAP. I answered all of his questions today, refilled his pain medications. Will see him monthly. Billing: Return visit level 4. Total time 30 minutes, counseling time 15. MTDD
[2018-02-18 14:50] VITALS: BP 142/92
--- NOTE | 2018-02-18 17:03 | Oncology Progress Note ---
History of Present Illness Evaluation Evaluation Date: Feb 18, 2018 Evaluation Time: 15:00 Primary Care Provider Primary Care Provider: Howard Conway MD Accompanied by Accompanied by: Self Last seen by : Destin on 01/12/2018 Chief Complaint Chief Complaint Bilateral hip and shoulder pain level 8(on a 0-10 scale) HPI HPI Mr. Herb Chacon is a very pleasant 47 year old man who has Hemoglobin SC sickle cell disease Dx: 1979. s/p recent sickle cell crisis hospitalization in [facility] x 12 days. patient was discharged from the Hospital yesterday 02/17/2018. According to patient; he went into a crisis after refraining from taking his pain medication" pain kept 'getting worse".Patient is [facility] today for management of his disease and he reports constant Bilateral hip and shoulder pain level 8(on a 0-10 scale). He reports feeling relatively ok besides the hip and shoulder pain. Patient denies any cardiac type chest pain, no SOB, afebrile, he is hemodynamically stable, afebrile, having regular BMs, and no changes in bladder pattern, no bruising, bleeding, minimal fatigue. Physical exam was unremarkable, except for a raspy voice and scar on the trachea. per patient he had a tracheostomy in the 1979.He continues to work at [employer] keeps active and on the go. Significant PMH of Sickle cell anemia with crisis; Diabetes mellitus; GERD; Chronic pain due to the orthopedic issues related to his sickle cell disease; Sleep apnea following with Pulmo Dr. Caldwell. Living Conditions lives alone but has friend support. PMH Patient History: FH: lung cancer MOTHER (lung cancer), FH: sickle cell anemia BROTHER OR SISTER (sister of sickle cell), BROTHER OR SISTER (brother with sickle cell) Seizure disorder BROTHER OR SISTER (brother with sickle cell) Type 2 diabetes mellitus FATHER (heart disease, diabetes), Social/Occupational History Social History: Social History This is a 47 Yr old Black/ male, he is S Single and has [] Children Hx Smoking: No Smoking Status: Never Smoker Exposure to Second Hand Smoke?: No Allergies & Medications Allergies: Coded Allergies: ketorolac (Verified Allergy, Intermediate, SOB, 01/14/18) morphine (Verified Allergy, Intermediate, SOB, 01/14/18) Home Meds Active Scripts Fentanyl 50 Mcg Patch (FENTANYL 50 MCG PATCH) 1 Each Patch.td72, 1 EACH TD Q72H , #10 PATCH.72H Prov:MANNY CHANG MD 01/12/18 Zolpidem Tartrate (AMBIEN) 5 Mg Tablet, 1 TAB PO QHS, #30 TAB Prov:MANNY CHANG MD 01/12/18 Lorazepam (LORAZEPAM) 0.5 Mg Tablet, 0.5-1 MG PO Q4-6H for sleep or procedure for 30 Days, #50 TAB Prov:MANNY CHANG MD 01/12/18 Fentanyl 100 Mcg Patch (FENTANYL 100 MCG PATCH) 1 Each Patch.td72, 1 EACH TD Q72H, #10 PATCH.72H 0 Refills Prov:MANNY CHANG MD 01/12/18 Hydromorphone Hcl (DILAUDID) 4 Mg Tablet, 4-8 MG PO Q6H Y for SEVERE PAIN, #100 MCG Prov:MANNY CHANG MD 01/12/18 Promethazine Hcl (PROMETHAZINE HCL) 25 Mg Tablet, 25 MG PO Q8H, #30 TAB 6 Refills Prov:MANNY CHANG MD 10/19/17 Furosemide (LASIX) 20 Mg Tablet, 0.5 TAB PO DAILY Y for edema for 30 Days, #30 TAB Prov:MANNY CHANG MD 09/21/17 Metformin Hcl (METFORMIN HCL) 500 Mg Tablet, 1 TAB PO BID, #60 TAB 11 Refills Prov:MANNY CHANG MD 09/21/17 Pantoprazole Sodium (PANTOPRAZOLE SODIUM) 40 Mg Tablet.dr, 40 MG PO QDAY, #30 TAB.SR 6 Refills Prov:MANNY CHANG MD 09/21/17 Celecoxib (CELEBREX) 200 Mg Capsule, 200 MG PO BID for PAIN, #60 CAPSULE 6 Refills Prov:MANNY CHANG MD 09/21/17 Lisinopril (LISINOPRIL) 10 Mg Tablet, 10 MG PO BID, #60 TAB 11 Refills Prov:MANNY CHANG MD 09/21/17 Folic Acid (FOLIC ACID) 1 Mg Tablet, 1 MG PO QDAY, #90 TAB 3 Refills Prov:OLEGARIO FENTON FERRYBOAT PILOT-BC, ONC 3/6/17 Reported Medications Gabapentin (GABAPENTIN) 300 Mg Capsule, 300 MG PO BID, CAPSULE 12/02/17 [Methylpred] No Conflict Check, 4 MG PO DAILY 04/06/17 Discontinued Scripts Prednisone (PREDNISONE) 20 Mg Tablet, 40 MG PO QDAY for 5 Days, #10 TAB Prov:DAVIDSON HEAD DO 01/15/18 Review of Systems Constitution: Denies Appetite/Weight Change, Denies Fever/Chills/Sweating, Denies Recent Infection, Denies Other HEENT: No EARS: Tinnitus, No NOSE: Nasal Discharge, No THROAT: Sore Throat, No EYES: Dipolpia, No EARS: Hearing Problems, No NOSE: Epistaxis, No THROAT: Mouth Ulcers, No EYES: Vision Change, No OTHER Respiratory: No Cough, No Expectoration, No Hemoptysis, No Shortness of Breath , No OTHER Cardiovascular: No Chest Pain, No Orthopnea, No Edema, No Palpitations, No OTHER Gastrointestinal: No Nausea, No Vomitting, No Diarrehea, No Constipation, No Heart Burn, No Swallowing Difficulties, No Abdominal Pain, No Other Gentiourinary: No Hematuria, No Dysuria, No Nocturia, No Other Musculoskeletal: Muscle Pain, Joint Pain, Bone Pain Hematological: No Bleeding, No Weakness, No Enlarged Lyph Nodes, No Bruising, Fatigue, No Other Psychiatric: Anxiety, No Depression, No Other Vital Signs Vital Signs Temperature: 98.1 Pulse: 67 BP Systolic: 142 BP Diastolic: 92 Respiratory Rate: 16 O2 SAT: 91 O2 Delivery: Room Air Height (feet) 5 Height (inches) 68.00 Weight lb: 230 Weight oz: 5.0 Weight Kg (Michael): 109.91 Pain: 8 Physical Exam General: Looks Stable, Well Developed, Well Nourished, Acute Distress HEENT: HEAD:Atraumatic Neck: Supple Lungs: Percussion Bilaterally Heart: Regular Rate and Rhythm, No Gallops, No Murmurs, No Clicks, No Rubs, No Other Abdomen: Soft and Nontender, No Hepatosplenomegaly, No Masses, No Other Extremities: No Cyanosis, No Clubbing, No Edema, No Other Lymphatics: No Peripheral Lymphadenopathy, No Other Psychiatric: Mood appears normal, Affect appears normal Skin: No Skin Rashes, No Bruising, No Purpura, No Moist Desquamation, No Dry Desquamation, No Errythema, No Mild Errythema, No Moderate Errythema, No Severe Errythema, No Induration, No Other Breast: No No Masses, No No Nipple Discharge, No No Skin Changes, No Other Assessment and Plan Assessment and Plan Mr. Herb Chacon is a very pleasant 47 year old man who has Hemoglobin SC sickle cell disease Dx: 1979. s/p recent sickle cell crisis hospitalization in [facility] x 12 days. patient was discharged from the Hospital yesterday 02/17/2018. According to patient; he went into a crisis after refraining from taking his pain medication" pain kept 'getting worse".Patient is seen at [facility] today for management of his disease and he reports constant Bilateral hip and shoulder pain level 8(on a 0-10 scale). Physical exam was unremarkable, except for a raspy voice and old healed scar noted on the trachea. per patient he had a tracheostomy in the 1979. DIAGNOSTIC DATA as of of 02/17/2018 WBC is 7.1; hemoglobin 10.5; hematocrit 31.5; MCV 78.9; platelet count 355; ANC 3.5; chemistry panel within acceptable parameter. Chest x-ray two-view done on 02/05/2018 was negative impression there was no acute cardiopulmonary process; chronic, increased sclerosis involving the humeral heads. The mass is only partially visualized, the right appears stable as compared to prior exams. 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 1. Hemoglobin SC sickle cell anemia. Hgb as of 02/17/18 is 10.5.denies chest david, no fevers, no palpitations, no SOB. 2. History of multiple sickle cell crises. s/p sickle cell crisis hospitalization x 12 days in [place]. No documentation of infection during this admission. repots pain level 8 on a (0-10 scale). Patient educted o ways to manage prescribed pain medications. and frequency to take medications as well watch for any respiratory depression. patient is being followed by Dr. Lorenzo in [place], who agrees ( sickle cell specialist) 3. Chronic pain syndrome due to sickle cell anemia. Increased his fentanyl earlier this year to 150 mcg. 4. Sleep apnea. following with Pulmo Dr. Caldwell . 5. Chronic Hip Pain 8/10 that radiates to the shoulders. 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 patient on Pain management with the Palliative clinic, along with the hem team. PLAN the following Prescriptions were refilled today, and new pain regimen education provided to patient. -Fentanyl patch 50 mcg every 72 hours dispense 10 patches; to boxes. patient to apply 150mcg/Dq72 hours he does still have 100mcg dose at home. - Dilaudid 4 mg by mouth every 4 hours when necessary for severe pain level 6- 10. dispense 90 pill; lorazepam 0.5 mg by mouth take one tablet at bedtime dispense 60 Pills -Zolpidem 5 mg by mouth every at bedtime dispense 60 pills. Metformin 500 mg by mouth twice a day dispense 60 pills with 3 refills. Gabapentin 600 mg by mouth 3 times a day dispense 90 peels with 3 refills- - Patient to take 4 mg of Dilaudid 8 AM along with 600 mg of gabapentin; followed by another 4 mg of Dilaudid 4-6 hours later week gabapentin while at work carcinoma as he is not DC we see no responses or sleepy -Patient to take 4-8 mg of Dilaudid at bedtime along with Benadryl, gabapentin, -Patient may continue to take Ambien and Ativan for insomnia, he may also try melatonin if he as he inquired - Patient to keep hydrated. - Continue taking celexa 200 mg PO BID -Continue skelaxin 800mg Po TID - Continue Bowel regimen with senna, colace. - Patient to contact Cancer center with any issue or concerns. -Education, patient instructed to go to ER immediately and or call Clinic if any Shortness of Breath, Pain unrelieved by above medications, Temp >/=100.4, fevers, chills, cardiac type chest pain, bleeding, excessive bruising, headaches , blurry vision, dizziness, abdominal pain, difficulty swallowing, and pain unrelieved by medication. TIME SPENT: 30 minutes 25 > minutes includes but not limited to discussion, counselling and co-ordination~ of care. Discussion with other health care providers, record review, review of lab work, diagnostic tests. Plan discussed extensively with patient. All the questions answered today. Thank you for the opportunity to be involved in the care of Herb Chacon. Billing Level: Return visit 4 MICHELLE VILLA, ONC Feb 18, 2018 17:03
[~2018-03-01] MED LIST changes: +NS(*) 0.9% 1000 ML BAG 1,000 ML IV ONE; +PRED20TA6 PO
[2018-03-01 12:43] VITALS: BP 147/100
--- NOTE | 2018-03-02 18:57 | [facility] ONCOLOGY NOTE ---
EVENT DATE: March 01, 2018 CHIEF COMPLAINT/REASON FOR VISIT Mr. 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 HISTORY OF PRESENT ILLNESS Fernando returns. Overall, he is having considerable pain again. He states that February and March have always been hard months for him for his entire life. Some triggers may include increased exertion during those months; however, he is not playing sports any longer. He has pains in the hips, knees, and shoulders bilaterally. He has established with the orthopedic group in [facility], and I would like them to follow with him, however, we are trying to avoid replacement for as long as possible of joints. He has also met with one of our sickle cell specialists, Dr. Lorenzo in [place], who agrees that we are now simply dealing with the chronic pain syndrome due to his prior sickle crises, and this will need to be a chronic process. Earlier this year, we increased his fentanyl patch to 150 mcg, and we plan to try to continue his current regimen for as long as possible. He does have severe sleep apnea. I encouraged CPAP machine, but he has not tolerated it well. No other new symptoms today. No signs of infection, fever, chills. EVENT DATE: January 12, 2018 CHIEF COMPLAINT/REASON FOR VISIT Mr. Estevez is a very pleasant 47-year-old gentleman with sickle cell SC disease, here for followup. HISTORY OF PRESENT ILLNESS Fernando returns. Overall he is doing okay. He continues to rate his pain at a 5 out of 10 focused on the hips. We had a recent hip x-ray since my last visit last month, and I would like him to follow up with orthopedic surgery. I advised him that he will likely need hip replacement someday, but we can hopefully try conservative management or injections in the interim. He is established with the [facility] here in [facility], and I would like him to follow up with them later this summer. He did have a minor flare, but did not require hospitalization last week, and did miss some work, but otherwise is doing okay. No recent infections. We increased his fentanyl patch one step to 150 mcg earlier this summer. We had him meet with the sickle cell specialists including Dr. Lorenzo in [place], who agrees that we are now dealing with chronic pain due to his prior sickle crises and we will need to manage it as a chronic pain syndrome. He does have severe sleep apnea. I have encouraged him to consider using the CPAP machine. No other new complaints. PAST MEDICAL/SURGICAL HISTORY 1. Sickle cell anemia with crisis. 2. Hemoglobin SC disease. 3. Diabetes mellitus. 4. GERD. 5. Chronic pain due to the orthopedic issues related to his sickle cell disease. 6. Sleep disordered breathing and following with Dr. Caldwell. FAMILY HISTORY The patient does have a sibling who from the disease as well as multiple siblings with the disease, some with hemoglobin SS disease and others with hemoglobin SC like the patient. SOCIAL HISTORY The patient works at [email or web address]. Never smoker. Denies significant alcohol use. REVIEW OF SYSTEMS CONSTITUTIONAL: No fevers, chills. Significant pain, but at his baseline. HEENT: No headache or vision changes. EXTREMITIES: Intermittent edema. MUSCULOSKELETAL: Chronic hip and shoulder pain with known avascular necrosis. CARDIOVASCULAR: No chest pain, dyspnea on exertion, acute chest syndrome symptoms. RESPIRATORY: No shortness of breath, wheeze, cough. GASTROINTESTINAL: No nausea or vomiting. GENITOURINARY: No dysuria or hematuria. PSYCHIATRIC: No anxiety or depression. ENDOCRINE: No heat or cold intolerance. SKIN: No concerning rashes or lesions. The remainder of the 14-point review of systems is otherwise negative. PHYSICAL EXAMINATION VITAL SIGNS: Blood pressure 147/100, pulse 99, respiratory rate 16, temperature 96.4 Fahrenheit, oxygen saturation 95% on room air. Pain 7/10, fatigue 6/10. The increased blood pressure is likely due to pain. GENERAL: Stable condition, resting comfortably in the chair. HEENT: Normocephalic, atraumatic. EXTREMITIES: No clubbing, cyanosis, or edema. I do not notice any edema in the left hand today which we have seen in the past. MUSCULOSKELETAL: Chronic shoulder, knee, and hip pain bilaterally. No one area of greater pain today. The remainder of physical exam deferred today to the discussion. IMPRESSION AND PLAN Mr. Estevez is a very pleasant, 47-year-old gentleman with the followin. Hemoglobin SC disease, sickle cell anemia. 2. History of multiple sickle cell crises. 3. Chronic pain syndrome due to sickle cell anemia. Continue his prior regimen. We tried to avoid the use of opiates and had been able to do so for many years, but now his pain has increased to where we are dependent on these. 4. Sleep apnea. Recommend CPAP. BILLING Return visit level 4. Total time 30 minutes, counseling time 20. MTDD
== END ==
LOC: ONC 12-01 08:05 → SPU 01-12 08:07 → ONC 02-18 14:30
PROVIDERS: ATTEND Internal Medicine
DX: D57.80 Other sickle-cell disorders without crisis (principal); G89.29 Other chronic pain; G47.30 Sleep apnea, unspecified; M25.551 Pain in right hip; M25.552 Pain in left hip; M25.511 Pain in right shoulder; M25.512 Pain in left shoulder
CPT/HCPCS: 36415; 83615; 85025; 96360; 99212; J7030; 82040; 82247; 82310; 82374; 82435; 82565; 82947; 84075; 84132; 84155; 84295; 84450; 84460; 84520

== ENCOUNTER 2018-05-14 10:00 | Outpatient (RCR) | payer BC ==
[2015-03-30 12:35] VITALS: Wt 108.2 kg
[2018-03-03 08:34] VITALS: BP 138/93
[2018-03-03 09:24] VITALS: BP 134/90
[2018-03-15 08:25] VITALS: BP 156/104
[2018-03-15 08:29] LABS: PLATELET COUNT, AUTOMATED 244 K/uL (150-450)
[2018-03-15] MEDS: NS(*) 0.9% 1000 ML BAG 1,000 ML IV PRN (08:30)
--- NOTE | 2018-03-16 14:37 | [facility] ONCOLOGY NOTE ---
EVENT DATE: March 15, 2018 CHIEF COMPLAINT/REASON FOR VISIT Mr. 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 HISTORY OF PRESENT ILLNESS Fernando returns. Overall, he is having considerable pain again. He states that February and March have always been hard months for him for his entire life. Some triggers may include increased exertion during those months; however, he is not playing sports any longer. He has pains in the hips, knees, and shoulders bilaterally. He has established with the orthopedic group in [facility], and I would like them to follow with him, however, we are trying to avoid replacement for as long as possible of joints. He has also met with one of our sickle cell specialists, Dr. Lorenzo in [place], who agrees that we are now simply dealing with the chronic pain syndrome due to his prior sickle crises, and this will need to be a chronic process. Earlier this year, we increased his fentanyl patch to 150 mcg, and we plan to try to continue his current regimen for as long as possible. He does have severe sleep apnea. I encouraged CPAP machine, but he has not tolerated it well. No other new symptoms today. No signs of infection, fever, chills. Mr. Estevez started fluids when I saw him two weeks ago twice weekly. This was very helpful for him. We have tried Hydrea in the past, but that was not helpful in terms of reducing exacerbations. He feels that February and March are his worst times of year. We will continue the fluids through at least this time and potentially indefinitely as we need to do anything we can to reduce the number of hospitalizations. PAST MEDICAL/SURGICAL HISTORY 1. Sickle cell anemia with crisis. 2. Hemoglobin SC disease. 3. Diabetes mellitus. 4. GERD. 5. Chronic pain due to the orthopedic issues related to his sickle cell disease. 6. Sleep disordered breathing and following with Dr. Caldwell. FAMILY HISTORY The patient does have a sibling who from the disease as well as multiple siblings with the disease, some with hemoglobin SS disease and others with hemoglobin SC like the patient. SOCIAL HISTORY The patient works at [employer]. Never smoker. Denies significant alcohol use. REVIEW OF SYSTEMS CONSTITUTIONAL: No fevers, chills. Significant pain, but at his baseline. HEENT: No headache or vision changes. EXTREMITIES: Intermittent edema. MUSCULOSKELETAL: Chronic hip and shoulder pain with known avascular necrosis. CARDIOVASCULAR: No chest pain, dyspnea on exertion, acute chest syndrome symptoms. RESPIRATORY: No shortness of breath, wheeze, cough. GASTROINTESTINAL: No nausea or vomiting. GENITOURINARY: No dysuria or hematuria. PSYCHIATRIC: No anxiety or depression. ENDOCRINE: No heat or cold intolerance. SKIN: No concerning rashes or lesions. The remainder of the 14-point review of systems is otherwise negative. PHYSICAL EXAMINATION VITAL SIGNS: Blood pressure 153/105, pulse 88, respiratory rate 16, temperature 97.6 Fahrenheit, oxygen saturation 93% on room air. Pain zero/10. Fatigue 3/10. His blood pressure is elevated, but he just took his blood pressure medicines before arriving. They have not reached their peak effect. GENERAL: Stable condition, resting comfortably in the chair. HEENT: Normocephalic, atraumatic. EXTREMITIES: No edema. He has had some edema in the hands, left greater than right in the past. It seems stable at this time. MUSCULOSKELETAL: Chronic shoulder, knee, and hip pain bilaterally. His pain is overall improved with the fluids. IMPRESSION AND PLAN Mr. Estevez is a very pleasant, 47-year-old gentleman with the followin. 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 2. History of multiple sickle cell crises. 3. Chronic pain syndrome due to sickle cell anemia. 4. Sleep apnea. Recommend CPAP, but this is a challenge for Mr. Estevez. Overall, he is doing well with the increased fluids. I am encouraged by this. No changes in his plan right now other than continuing fluids on a week or biweekly basis. I answered all his questions today. ABDIAS
[2018-03-18] MEDS: NS(*) 0.9% 1000 ML BAG 1,000 ML IV PRN (08:15)
[2018-03-18 08:20] VITALS: BP 133/102
[2018-03-18 09:56] VITALS: BP 151/100
[2018-03-22] MEDS: NS(*) 0.9% 1000 ML BAG 1,000 ML IV PRN (14:20)
[2018-03-22 14:24] VITALS: BP 138/90
[2018-03-25 08:05] VITALS: BP 143/103
[2018-03-25] MEDS: NS(*) 0.9% 1000 ML BAG 1,000 ML IV PRN (08:11)
[2018-03-29 08:12] VITALS: BP 130/89
[2018-03-29] MEDS: LIDOCAINE/SOD BICARB 8.4% SYR ID PRN (08:40)
[2018-03-29] MEDS: NS(*) 0.9% 1000 ML BAG 1,000 ML IV PRN (08:41)
[2018-04-02] MEDS: NS(*) 0.9% 1000 ML BAG 1,000 ML IV PRN (13:24)
[2018-04-02 13:25] VITALS: BP 145/92
[2018-04-05] MEDS: NS(*) 0.9% 1000 ML BAG 1,000 ML IV PRN (09:00)
[2018-04-08 08:17] VITALS: BP 140/100
[2018-04-08] MEDS: NS(*) 0.9% 1000 ML BAG 1,000 ML IV PRN (08:27)
[2018-04-08] MEDS: LIDOCAINE/SOD BICARB 8.4% SYR ID PRN (08:27)
[2018-04-12 08:07] VITALS: BP 162/96
[2018-04-12] MEDS: NS(*) 0.9% 1000 ML BAG 1,000 ML IV PRN (08:45)
[2018-04-12 09:30] VITALS: BP 142/102
[2018-04-12] MEDS: LIDOCAINE/SOD BICARB 8.4% SYR ID PRN (09:41)
--- NOTE | 2018-04-13 13:09 | SCH[facility]ER ONCOLOGY NOTE ---
EVENT DATE: April 12, 2018 CHIEF COMPLAINT/REASON FOR VISIT Mr. Estevez is a very pleasant, 47-year-old gentleman with sickle cell SC disease here for followup routinely. HISTORY OF PRESENT ILLNESS Fernando returns. He states that the early fall is his worse time of year so we have been giving fluids once or twice a week. This has reduced his frequency of exacerbations and hospitalizations. We may need to do this anytime if there are more frequent exacerbations. Some triggers for him included increased exertion during these months. However, he is refraining from sports. He has pain in the hips, knees and shoulders and is established with a local orthopedic group here in [place]. I would like them to follow with him but we are trying to avoid replacements for as long as possible but they are likely needed in the future. He has also met with one of our sickle cell specialists, Dr. Lorenzo in [place], who agrees that we are now simply dealing with a chronic pain syndrome due to his prior crises. This will need to be a chronic process. Earlier in 2018, we increased his fentanyl patch to 150 mcg and we plan to try to continue this current regimen for as long as possible. He does have severe sleep apnea and I encouraged CPAP. No recent signs of infection, fever, chills or other triggers. We have tried Hydrea in the past but this has not been helpful in terms of reducing his exacerbations. We will continue fluids one to two times a week. PAST MEDICAL/SURGICAL HISTORY 1. Sickle cell anemia with crisis. 2. Hemoglobin SC disease. 3. Diabetes mellitus. 4. GERD. 5. Chronic pain due to the orthopedic issues related to his sickle cell disease. 6. Sleep disordered breathing and following with Dr. Caldwell. FAMILY HISTORY The patient does have a sibling who from the disease as well as multiple siblings with the disease, some with hemoglobin SS disease and others with hemoglobin SC like the patient. SOCIAL HISTORY The patient works at [employer]. Never smoker. Denies significant alcohol use. REVIEW OF SYSTEMS CONSTITUTIONAL: No fevers, chills. Significant pain, but at his baseline. HEENT: No headache or vision changes. EXTREMITIES: Intermittent edema. MUSCULOSKELETAL: Chronic hip and shoulder pain with known avascular necrosis. CARDIOVASCULAR: No chest pain, dyspnea on exertion, acute chest syndrome symptoms. RESPIRATORY: No shortness of breath, wheeze, cough. GASTROINTESTINAL: No nausea or vomiting. GENITOURINARY: No dysuria or hematuria. PSYCHIATRIC: No anxiety or depression. ENDOCRINE: No heat or cold intolerance. SKIN: No concerning rashes or lesions. The remainder of the 14-point review of systems is otherwise negative. PHYSICAL EXAMINATION VITAL SIGNS: Blood pressure 162/96, pulse 77, respiratory rate 16, temperature 98.6 Fahrenheit, oxygen saturation 90% on room air. Weight 111.4 kg. Pain 4/10. Fatigue 4/10. GENERAL: Stable condition, resting comfortably in the chair. HEENT: Normocephalic, atraumatic. CARDIOVASCULAR: Regular rate and rhythm. Normal S1, S2. No extra sounds. No murmur, rub or gallop. LUNGS: Clear to auscultation bilaterally. ABDOMEN: Obese. EXTREMITIES: No edema today. He has had left hand edema in the past of unclear etiology. MUSCULOSKELETAL: Chronic shoulder, knee, and hip pain. He is essentially at his baseline and rates it a 4/10. IMPRESSION/REPORT/PLAN Mr. Estevez is a pleasant 47-year-old gentleman with the followin. Hemoglobin SC disease, sickle cell anemia. 2. History of multiple sickle cell crises. 3. Chronic pain syndrome due to sickle cell anemia. 4. Sleep apnea. Recommend CPAP indefinitely. Encouraged by the control with fluids and we will continue them every one to two times a week. We will give them today as well. Refilled his medications today. Encouraged him to establish with a primary care provider regarding his blood pressure. I answered all of his questions today. Billing: Return visit level 3. Total time 20 minutes and counseling time 15. MTDD
[2018-04-15] MEDS: NS(*) 0.9% 1000 ML BAG 1,000 ML IV PRN (08:23)
[2018-04-15 08:26] VITALS: BP 150/98
[2018-04-15] MEDS: LIDOCAINE/SOD BICARB 8.4% SYR ID PRN (09:11)
[2018-04-19 08:29] VITALS: BP 132/87
[2018-04-19] MEDS: LIDOCAINE/SOD BICARB 8.4% SYR ID PRN (08:47)
[2018-04-19] MEDS: NS(*) 0.9% 1000 ML BAG 1,000 ML IV PRN (08:48)
[2018-04-22 08:30] VITALS: BP 136/87
[2018-04-22] MEDS: LIDOCAINE/SOD BICARB 8.4% SYR ID PRN (08:39)
[2018-04-22] MEDS: NS(*) 0.9% 1000 ML BAG 1,000 ML IV PRN (08:39)
[2018-04-22 09:57] VITALS: BP 135/85
--- NOTE | 2018-04-23 11:50 | Oncology Note ---
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 [employer] Smoking: No Smoking Status: Never Smoker Exposure to Second Hand Smoke?: No Allergies & Medications Allergies: Coded Allergies: ketorolac (Verified Allergy, Intermediate, SOB, 01/14/18) morphine (Verified Allergy, Intermediate, SOB, 01/14/18) Home Meds Active Scripts Gabapentin (GABAPENTIN) 300 Mg Capsule, 300 MG PO BID, #60 CAPSULE 11 Refills Prov:MANNY CHANG MD 03/15/18 Celecoxib (CELEBREX) 200 Mg Capsule, 200 MG PO BID for PAIN, #60 CAPSULE 6 Refills Prov:MANNY CHANG MD 03/15/18 Promethazine Hcl (PROMETHAZINE HCL) 25 Mg Tablet, 25 MG PO Q8H, #30 TAB 6 Refills Prov:MANNY CHANG MD 10/19/17 Furosemide (LASIX) 20 Mg Tablet, 0.5 TAB PO DAILY PRN for edema for 30 Days, #30 TAB Prov:MANNY CHANG MD 09/21/17 Metformin Hcl (METFORMIN HCL) 500 Mg Tablet, 1 TAB PO BID, #60 TAB 11 Refills Prov:MANNY CHANG MD 09/21/17 Pantoprazole Sodium (PANTOPRAZOLE SODIUM) 40 Mg Tablet.dr, 40 MG PO QDAY, #30 T AB.SR 6 Refills Prov:MANNY CHANG MD 09/21/17 Lisinopril (LISINOPRIL) 10 Mg Tablet, 10 MG PO BID, #60 TAB 11 Refills Prov:MANNY CHANG MD 09/21/17 Folic Acid (FOLIC ACID) 1 Mg Tablet, 1 MG PO QDAY, #90 TAB 3 Refills Prov:OLEGARIO FENTON SECURITY INVESTIGATOR-BC, ONC 09/08/16 Reported Medications Hydromorphone Hcl (DILAUDID) 4 Mg Tablet, 4-8 MG PO Q6H for PAIN 04/23/18 Fentanyl (Fentanyl) 1 Each Patch.td72, 50 MCG TD Q3D 04/23/18 Fentanyl (Fentanyl) 1 Each Patch.td72, 100 MCG TD Q3D 04/23/18 [Methylpred] No Conflict Check, 4 MG PO DAILY 04/06/17 Oswaldo is a 47yo male with sickle cell anemia with chronic pain. His pain has been fairly well controlled on Fentanyl 150mcg q 3d and Dilaudid 4mg 1-2 q 6 hrs prn breakthrough pain. He presents today with significant bilateral shoulder and hip pain. He has been receiving IVF twice a week, last on 04/22/18. Pain is 7/10 today. He slept poorly last night. He has taken Dilaudid 4mg ~ 6 tabs today but continues with pain. He denies chest pain or shortness of breath. He is fatigued. Dr. Gottlieb was consulted. He spoke with Dr. Chang who agreed that pt could receive Dilaudid 4mg IV today only. Dr. Gottlieb spoke with the pt discussing the need for him to be seen in the ER as opposed to the cancer clinic for acute onset pain. After discussion, Oswaldo deferred any IV pain medication, stating he was frustrated but "OK". L/SURGICAL HISTORY 1. Sickle cell anemia with crisis. 2. Hemoglobin SC disease. 3. Diabetes mellitus. 4. GERD. 5. Chronic pain due to the orthopedic issues related to his sickle cell disease. 6. Sleep disordered breathing and following with Dr. Caldwell. FAMILY HISTORY The patient does have a sibling who from the disease as well as multiple siblings with the disease, some with hemoglobin SS disease and others with hemoglobin SC like the patient. SOCIAL HISTORY The patient is single with three grown daughters. The patient works at [employer]. Never smoker. Denies significant alcohol use. REVIEW OF SYSTEMS CONSTITUTIONAL: No fevers, chills. Significant pain. HEENT: No headache or vision changes. EXTREMITIES: Intermittent edema. MUSCULOSKELETAL: Chronic hip and shoulder pain with known avascular necrosis. CARDIOVASCULAR: No chest pain, dyspnea on exertion, acute chest syndrome symptoms. RESPIRATORY: No shortness of breath, wheeze, cough. GASTROINTESTINAL: No nausea or vomiting. GENITOURINARY: No dysuria or hematuria. PSYCHIATRIC: No anxiety or depression. ENDOCRINE: No heat or cold intolerance. SKIN: No concerning rashes or lesions. The remainder of the 14-point review of systems is otherwise negative. PHYSICAL EXAMINATION VITAL SIGNS: Blood pressure 145/110, pulse 101, respiratory rate 16, temperature 98.1 Fahrenheit, oxygen saturation 91% on room air. Pain 7/10. Fatigue 7/10. GENERAL: Stable condition, some discomfort in the chair. HEENT: Normocephalic, atraumatic. CARDIOVASCULAR: Mild tachycardia with regular rhythm. Normal S1, S2. No extra sounds. No murmur, rub or gallop. LUNGS: Clear to auscultation bilaterally. ABDOMEN: Obese. EXTREMITIES: No edema today. He has had left hand edema in the past of unclear etiology, now resolved. MUSCULOSKELETAL: Chronic shoulder, knee, and hip pain. IMPRESSION/REPORT/PLAN Mr. Estevez is a pleasant 47-year-old gentleman with the followin. Hemoglobin SC disease, sickle cell anemia. 2. History of multiple sickle cell crises. 3. Chronic pain syndrome due to sickle cell anemia. 4. Hypertension, on lisinoprll. PLAN 1. Hydrate with 1 L NS today; continue with twice a week hydration. 2. CBC, retic today. 3. Discussed the importance of taking Dilaudid earlier, at onset of pain, vs la ter. Pt states understanding but this has been difficult for him to do. He deferred IV Dilaudid in the clinic today. 4. Continue lisinopril. We reviewed the importance of limiting sodium in diet. POPEYE BURNS Apr 23, 2018 11:50
[2018-04-23 11:57] VITALS: BP 145/110
[2018-04-23] MEDS: NS(*) 0.9% 1000 ML BAG 1,000 ML IV PRN (13:20)
[2018-04-23] MEDS: LIDOCAINE/SOD BICARB 8.4% SYR ID PRN (13:20)
[2018-04-23 14:43] LABS: PLATELET COUNT, AUTOMATED 303 K/uL (150-450)
[~2018-05-14 10:00] MED LIST changes: +DEXTROSE 5%(*) 100 ML BAG 100 ML IVPB PRN; +FENT1PAT TD; -HYDR-4309 PO; +HYDR-653 PO; +INFLUENZA VIRUS VAC 0.5ML SYR IM ONLY ONE; -METF-411 PO; +METF-450 PO; +NS(*) 0.9% 100 ML BAG 100 ML IVPB PRN
[2018-05-14 10:14] VITALS: BP 110/76
[2018-05-14] MEDS ORDERED: ZOLP-1 PO (10:59)
[2018-05-14] MEDS ORDERED: LORA0.5P MC (10:59)
--- NOTE | 2018-05-18 20:13 | ONCOLOGY FOLLOW UP NOTE ---
EVENT DATE: May 14, 2018 CHIEF COMPLAINT Follow up for sickle cell anemia. HISTORY OF PRESENT ILLNESS Patient is a 47-year-old male who was seen today in followup. He was last seen in our clinic on 04/23/18. He relates that he was admitted to [facility] from 04/28-05/03/18 with acute pain crisis. He was also noted to have a remote infarct and was started on aspirin and atorvastatin. Today, he feels like he is doing fairly well. He does have chronic pain, especially in both shoulders, left greater than right. He is not sleeping well. He does have intermittent headaches and describes some fleeting numbness in his left arm which resolves quickly. He relates that he is now taking his metformin as ordered for Type 2 diabetes. MEDICAL HISTORY 1. Sickle cell anemia. 2. Hemoglobin SC disease. 3. Type 2 diabetes. 4. GERD. 5. Chronic pain due to avascular necrosis related to his sickle cell disease. 6. Sleep disorder. FAMILY HISTORY Brother of the disease. He has multiple siblings with the disease, some with hemoglobin SS disease and others with hemoglobin SC disease. SOCIAL HISTORY The patient is single. He has three grown daughters. He works at [employer] in [place]. He is a never smoker. He denies alcohol use or illicit drug use. MEDICATIONS 1. Dilaudid 4 mg one to two q.6 hours p.r.n. pain. 2. Fentanyl 150 mcg (50 mcg and 100 mcg patches) q.72 hours. 3. Lorazepam 0.5 mg p.r.n. 4. Zolpidem 5 mg at bedtime p.r.n. 5. Metformin 750 mg b.i.d. 6. Atorvastatin 40 mg daily. 7. Aspirin 81 mg daily. 8. Celebrex 200 mg b.i.d. 9. Skelaxin 800 mg b.i.d. ALLERGIES KETORALAC and MORPHINE. REVIEW OF SYSTEMS A 12-point review of systems is performed and is negative except as stated above. PHYSICAL EXAMINATION VITAL SIGNS: Weight 108.2 kg. BP 110/76, P 86, R 16, temp 97.0. O2 sat 98%. GENERAL: Patient is a well-developed, well-nourished male in no acute distress. HEAD: Normocephalic, atraumatic. EYES: Sclerae anicteric. MOUTH: Moist mucous membranes. NECK: Supple. No adenopathy. LUNGS: Clear bilaterally. CARDIOVASCULAR: Heart rate regular, 86 per minute, without murmur, S3, or S4. EXTREMITIES: Decreased range of motion in both shoulders. No peripheral edema. NEUROLOGIC: Nonfocal. 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 LABORATORY No lab today. IMPRESSION AND PLAN The patient is a 47-year-old male with hemoglobin SC disease, sickle cell anemia with chronic versus acute pain. 1. Sickle cell anemia. Patient is seen on a monthly basis. He was recently hospitalized in [place] from 04/28-05/03/18. He feels that this was helpful for him. 2. Chronic pain syndrome. Medications including fentanyl 50 mcg patch and 100 mcg patch (total dose 150 mcg) q.72 hours, #10 each is refilled. Dilaudid 4 mg #100 is refilled. He will continue current medications. We again reviewed the need to take his Dilaudid earlier rather than later. 3. Sleep disorder. He uses Zolpidem 5 mg at bedtime. 4. Chronic ischemic stroke. Presented in [place] with headache, but no focal neurologic deficits. CT scan was negative for bleed. MRA/MRI confirmed a remote infarct in the anterior right frontal lobe, but no acute infarct. Carotid ultrasound showed 50-69% stenosis on the left and 1-15% on the right. He began aspirin and atorvastatin. 5. Diabetes. Continue metformin. He does relate that he has a hard time eating regularly. 6. Follow up as scheduled for continued care. He understands that we are available if he were to need intravenous hydration in the interim. ABDIAS
[2018-05-31 16:08] VITALS: BP 128/79
[2018-05-31] MEDS: NS(*) 0.9% 1000 ML BAG 1,000 ML IV PRN (16:12)
== END 2018-05-31 ==
LOC: ONC 10:00
PROVIDERS: ATTEND Internal Medicine
DX: D57.1 Sickle-cell disease without crisis (principal); Z23 Encounter for immunization; G89.4 Chronic pain syndrome; G47.30 Sleep apnea, unspecified; E11.9 Type 2 diabetes mellitus without complications
CPT/HCPCS: 85025; 85045; 90471; 90674; 96360; 96361; 99212; J7030; 82040; 82247; 82310; 82374; 82435; 82565; 82947; 84075; 84132; 84155; 84295; 84450; 84460; 84520

== ENCOUNTER 2018-09-06 09:00 | Outpatient (RCR) | payer BC ==
[2015-03-30 12:35] VITALS: Wt 104.6 kg
[2018-06-09 08:12] VITALS: BP 121/84
[2018-06-09] MEDS: NS(*) 0.9% 1000 ML BAG 1,000 ML IV PRN (08:55)
[2018-06-09 09:44] LABS: PLATELET COUNT, AUTOMATED 385 K/uL (150-450)
[2018-06-09 09:57] VITALS: BP 127/89
--- NOTE | 2018-06-09 15:05 | NUR ---
Pt completed initial HADS assessment. Pt scored D-0, A-3 - both normal scores
--- NOTE | 2018-06-10 22:42 | ONCOLOGY FOLLOW UP NOTE ---
EVENT DATE: June 09, 2018 CHIEF COMPLAINT Followup for sickle cell anemia. HISTORY OF PRESENT ILLNESS Patient is a 47-year-old male who was seen today in followup. He has had long- standing sickle cell anemia (hemoglobin SC disease). He lives with chronic pain, but feels it is fairly well managed on fentanyl with p.r.n. Dilaudid. He relates he is having a hard time falling asleep due to his bilateral shoulder pain and is trying to manage this with zolpidem and/or lorazepam. He continues on metformin for his Type 2 diabetes. 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 He denies any other new complaints. He had one episode of nausea, vomiting, and diarrhea, but felt that it was related to some food he had eaten. This has resolved, although he did lose a little weight. MEDICAL HISTORY 1. Sickle cell anemia. 2. Hemoglobin SC disease. 3. Type 2 diabetes. 4. GERD. 5. Chronic pain due to avascular necrosis related to his sickle cell disease. 6. Sleep disorder. FAMILY HISTORY Brother of the disease. He has multiple siblings with the disease, some with hemoglobin SS disease and others with hemoglobin SC disease. SOCIAL HISTORY The patient is single. He has three grown daughters. He works at [employer] in [place]. He is a never smoker. He denies alcohol use or illicit drug use. MEDICATIONS 1. Dilaudid 4 mg one to two q.6 hours p.r.n. pain. 2. Fentanyl 150 mcg (50 mcg and 100 mcg patches) q.72 hours. 3. Lorazepam 0.5 mg p.r.n. 4. Zolpidem 5 mg at bedtime p.r.n. 5. Metformin 750 mg b.i.d. 6. Atorvastatin 40 mg daily. 7. Aspirin 81 mg daily. 8. Celebrex 200 mg b.i.d. 9. Skelaxin 800 mg b.i.d. ALLERGIES KETORALAC and MORPHINE. REVIEW OF SYSTEMS A 12-point review of systems is performed and is negative except as stated above. PHYSICAL EXAMINATION VITAL SIGNS: Weight 102.1 kg. BP 121/84, P 76, R 16, temp 96.9, O2 sat 93%. GENERAL: Patient is a well-developed, well-nourished male in no acute distress. HEAD: Normocephalic, atraumatic. EYES: Sclerae anicteric. MOUTH: Moist mucous membranes. NECK: Supple. No adenopathy. LUNGS: Clear bilaterally. CARDIOVASCULAR: Heart rate regular, 76 per minute, without murmur, S3, or S4. EXTREMITIES: No edema. Decreased range of motion in both shoulders. NEUROLOGIC: Nonfocal. LABORATORY CBC today reveals a WBC of 7.6, hemoglobin 13.4, hematocrit 40.9, platelets 385,000. CMP is within normal limits. IMPRESSION AND PLAN The patient is a 47-year-old male with hemoglobin SC disease, sickle cell anemia, and chronic pain syndrome. 1. Sickle cell anemia. Patient will continue to be seen on a monthly basis. Today, he requests hydration which has been helpful for him. He understands that he can call us if he feels this is needed in between appointments. 2. Chronic pain syndrome. Today I have refilled his medications including fentanyl 50 mcg patch and 100 mcg patch (total 150 mcg) q.72 hours, #10 of each is refilled. Dilaudid 4 mg #100 is refilled. Zolpidem and lorazepam are also refilled. He has been very consistent taking his pain medications. 3. Sleep disorder. He finds it difficult to sleep due to his shoulder pain. He uses zolpidem and/or lorazepam which is helpful. 4. Type 2 diabetes. Continue metformin. We briefly discussed the need for a more consistent diet. 5. Follow up as needed for hydration. 6. Follow up in one month for continued care. ABDIAS
[2018-07-09 12:02] VITALS: BP 149/90
[2018-07-09] MEDS: LIDOCAINE/SOD BICARB 8.4% SYR ID PRN (12:10)
[2018-07-09] MEDS: NS(*) 0.9% 1000 ML BAG 1,000 ML IV PRN (12:11)
[2018-07-09 13:16] VITALS: BP 145/86
[2018-07-12 08:40] VITALS: BP 136/87
[2018-07-12] MEDS: NS(*) 0.9% 1000 ML BAG 1,000 ML IV PRN (08:44)
[2018-07-12] MEDS: LIDOCAINE/SOD BICARB 8.4% SYR ID PRN (08:45)
[2018-07-12 09:55] VITALS: BP 148/100
--- NOTE | 2018-07-12 13:22 | SCHUSTER ONCOLOGY NOTE ---
EVENT DATE: July 12, 2018 CHIEF COMPLAINT/REASON FOR VISIT Mr. 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 HISTORY OF PRESENT ILLNESS Fernando returns. We added fluids once or twice a week starting in the fall and this has reduced the frequency and severity of his exacerbations as well as hospitalizations. We now plan to do this indefinitely as an as-needed process to try to help reduce exacerbations. His pain medication has been stable with a Fentanyl patch of 150 mcg as well as p.r.n. Dilaudid. We sent him to see one of our sickle cell specialist, Dr. Lorenzo, in [place], who agrees that we are dealing simply with a chronic pain syndrome due to his prior crises and orthopedic issues. He does have severe sleep apnea and I encouraged CPAP but he is not using this. We tried Hydrea in the past but it has not been helpful in reducing his exacerbations, which is not unusual for sickle cell SC disease. No recent triggers, infections, fever or chills. His biggest complaint today is right shoulder pain. He did have orthopedic intervention a little over a year ago, which provided some temporary relief. He will eventually need replacement of multiple joints but we can try nonreplacement interventions for as long as possible. I do think it would be garcia for him to get imaging and follow up with [facility] at least once a year considering he is having pain. We will set that up now. PAST MEDICAL/SURGICAL HISTORY 1. Sickle cell anemia with crisis. 2. Hemoglobin SC disease. 3. Diabetes mellitus. 4. GERD. 5. Chronic pain due to the orthopedic issues related to his sickle cell disease. 6. Sleep disordered breathing and following with Dr. Caldwell. FAMILY HISTORY The patient does have a sibling who from the disease as well as multiple siblings with the disease, some with hemoglobin SS disease and others with hemoglobin SC like the patient. SOCIAL HISTORY The patient works at [employer]. Never smoker. Denies significant alcohol use. REVIEW OF SYSTEMS CONSTITUTIONAL: No fevers, chills. Significant pain, but at his baseline. HEENT: No headache or vision changes. EXTREMITIES: Intermittent edema. MUSCULOSKELETAL: Chronic hip and shoulder pain with known avascular necrosis. CARDIOVASCULAR: No chest pain, dyspnea on exertion, acute chest syndrome symptoms. RESPIRATORY: No shortness of breath, wheeze, cough. GASTROINTESTINAL: No nausea or vomiting. GENITOURINARY: No dysuria or hematuria. PSYCHIATRIC: No anxiety or depression. ENDOCRINE: No heat or cold intolerance. SKIN: No concerning rashes or lesions. The remainder of the 14-point review of systems is otherwise negative. PHYSICAL EXAMINATION VITAL SIGNS: Blood pressure 136/87, pulse 67, respiratory rate 16, temperature 98.4 Fahrenheit, oxygen saturation 93% on room air. Pain 4/10. Fatigue 6/10. GENERAL: Stable condition, resting comfortably in the chair, getting IV fluids. HEENT: Normocephalic, atraumatic. MUSCULOSKELETAL: Chronic shoulder, knee and hip pain. His pain is at his baseline and rated 4/10. His biggest joint complaint is the right shoulder. He does have some mild decreased range of motion but is able to use the arm and continue to work. CARDIOVASCULAR: Regular rate and rhythm. Normal pulse. LUNGS: Clear. ABDOMEN: Obese. EXTREMITIES: No edema today. He has had problems with left hand edema in the past of unclear etiology. The remainder of the physical exam is unremarkable. IMPRESSION/REPORT/PLAN Mr. Estevez is a very pleasant 47-year-old gentleman with the followin. Hemoglobin SC disease, sickle cell anemia. 2. History of multiple sickle cell crises. 3. Chronic pain syndrome due to sickle cell anemia, on stable pain doses, although they are high pain medication doses. [facility] to [facility] in [place], who agree with current plan. 4. Sleep apnea, severe. Recommend CPAP but this has been hard for Oswaldo to tolerate and he does not use it. 5. Right shoulder pain. Would like to send him back to [facility] for consideration of imaging and intervention. He may require surgery with a replacement some day. I answered all of his many questions today. Will continue to use fluids once or twice a week to try to reduce the hospitalizations and exacerbations. Refilled his pain medications today with Ms. Rodney. Billing: Return visit level 3. Total time 20 minutes and counseling time 15. MTDD
[2018-07-16] MEDS: NS(*) 0.9% 1000 ML BAG 1,000 ML IV PRN (09:15)
[2018-07-16] MEDS: LIDOCAINE/SOD BICARB 8.4% SYR ID PRN (09:15)
[2018-07-16 09:47] VITALS: BP 130/84
[2018-07-21 08:40] VITALS: BP 126/86
[2018-07-21] MEDS: NS(*) 0.9% 1000 ML BAG 1,000 ML IV PRN (08:50)
[2018-07-21] MEDS: LIDOCAINE/SOD BICARB 8.4% SYR ID PRN (08:50)
--- NOTE | 2018-07-21 10:44 | ONCOLOGY FOLLOW UP NOTE ---
EVENT DATE: July 21, 2018 CHIEF COMPLAINT Followup for sickle cell anemia and pain. HISTORY OF PRESENT ILLNESS Patient is a 47-year-old male who is seen today as a work-in. He has had longstanding sickle cell anemia (hemoglobin SC disease). He has chronic pain, somewhat managed on Fentanyl with p.r.n. Dilaudid. He presents today with acute pain crisis. He has used his hydromorphone approximately four tablets since midnight and last took this at 4:30 a.m. He notes chronic bilateral shoulder and bilateral hip pain but today feels the pain is worse in his right hip. He is fairly overwhelmed by this. He has been referred to [facility] for evaluation but this has not been scheduled as of yet. MEDICAL HISTORY 1. Sickle cell anemia. 2. Hemoglobin SC disease. 3. Type 2 diabetes. 4. GERD. 5. Chronic pain due to avascular necrosis related to his sickle cell disease. 6. Sleep disorder. FAMILY HISTORY Brother of the disease. He has multiple siblings with the disease, some with hemoglobin SS disease and others with hemoglobin SC disease. SOCIAL HISTORY The patient is single. He has three grown daughters. He works at [employer] in [place]. He is a never smoker. He denies alcohol use or illicit drug use. MEDICATIONS 1. Dilaudid 4 mg one to two q.6 hours p.r.n. pain. 2. Fentanyl 150 mcg (50 mcg and 100 mcg patches) q.72 hours. 3. Lorazepam 0.5 mg p.r.n. 4. Zolpidem 5 mg at bedtime p.r.n. 5. Metformin 750 mg b.i.d. 6. Atorvastatin 40 mg daily. 7. Aspirin 81 mg daily. 8. Celebrex 200 mg b.i.d. 9. Skelaxin 800 mg b.i.d. ALLERGIES KETORALAC and MORPHINE. REVIEW OF SYSTEMS A 12-point review of systems is performed and is negative except as stated above. PHYSICAL EXAMINATION VITAL SIGNS: Blood pressure 126/86, pulse 88, respirations 16, temperature 99.1, O2 sat 88%. GENERAL: Patient is a well-developed, well-nourished male who is in pain today. Affect is slightly flat. HEAD: Normocephalic, atraumatic. EYES: Sclerae anicteric. MOUTH: Dry mucous membranes. No lesions. NECK: Supple. No adenopathy. LUNGS: Clear bilaterally. CARDIOVASCULAR: Heart rate regular, 88 per minute, without murmur, S3, or S4. EXTREMITIES: No edema. Decreased range of motion in both shoulders. NEUROLOGIC: Nonfocal. LABORATORY No lab. IMPRESSION AND PLAN The patient is a 47-year-old male with hemoglobin SC disease and chronic pain syndrome. 1. Sickle cell anemia. Patient continues monthly follow up with us. He will be hydrated today, which has been somewhat helpful. I have encouraged him to come back again tomorrow if he believes this might help. 2. Chronic pain syndrome. Currently on Fentanyl 150 mcg every 72 hours with Dilaudid 4 mg p.r.n. As he is in acute pain today, I recommended he continue taking Dilaudid 4 mg two tabs q 4-6 hours routinely until pain is under better control. He also uses Zolpidem and lorazepam, which are helpful for sleep, as he has sleep issues related to shoulder pain. 3. Ortho. Patient has avascular necrosis in both hips and shoulders. His last surgical procedure was in August 2016 on his right shoulder. He has been referred back to Dr. Anderson for evaluation and possible treatment. 4. Type 2 diabetes. Continue metformin. Last hemoglobin A1c was 4.4 5. Follow up for hydration as needed. 6. Follow up as scheduled for continued care. ABDIAS
[2018-07-28] MEDS: NS(*) 0.9% 1000 ML BAG 1,000 ML IV PRN (13:00)
[2018-07-28] MEDS: LIDOCAINE/SOD BICARB 8.4% SYR ID PRN (13:00)
[2018-07-28 14:02] VITALS: BP 131/85
[2018-08-09 12:12] VITALS: BP 135/85
--- NOTE | 2018-08-10 12:54 | ONCOLOGY FOLLOW UP NOTE ---
EVENT DATE: August 09, 2018 CHIEF COMPLAINT Followup for sickle cell anemia and chronic pain. HISTORY OF PRESENT ILLNESS Patient is a 48-year-old male who is seen today in followup. Overall, he feels he is doing fairly well. His pain has been fairly well controlled on Fentanyl and p.r.n. Dilaudid. He comes to the clinic for occasional hydration, which he believes is helpful. He was referred to Dr. Anderson for evaluation of his shoulder pain but did not make this appointment. He had some neck discomfort and has been using Flexeril p.r.n., which has been helpful. He otherwise denies any new complaints. MEDICAL HISTORY 1. Sickle cell anemia. 2. Hemoglobin SC disease. 3. Type 2 diabetes. 4. GERD. 5. Chronic pain due to avascular necrosis related to his sickle cell disease. 6. Sleep disorder. FAMILY HISTORY Brother of the disease. He has multiple siblings with the disease, some with hemoglobin SS disease and others with hemoglobin SC disease. SOCIAL HISTORY The patient is single. He has three grown daughters. He works at [employer] in [place]. He is a never smoker. He denies alcohol use or illicit drug use. MEDICATIONS 1. Dilaudid 4 mg one to two q.6 hours p.r.n. pain. 2. Fentanyl 150 mcg (50 mcg and 100 mcg patches) q.72 hours. 3. Lorazepam 0.5 mg p.r.n. 4. Zolpidem 5 mg at bedtime p.r.n. 5. Metformin 750 mg b.i.d. 6. Atorvastatin 40 mg daily. 7. Aspirin 81 mg daily. 8. Celebrex 200 mg b.i.d. 9. Skelaxin 800 mg b.i.d. 10. Flexeril 5 mg t.i.d. p.r.n. ALLERGIES KETORALAC and MORPHINE. REVIEW OF SYSTEMS A 12-point review of systems is performed and is negative except as stated above. PHYSICAL EXAMINATION VITAL SIGNS: Weight 106.4 kg. Blood pressure 135/85, pulse 94, respirations 16, temperature 97.3, O2 sat 90%. GENERAL: Patient is a well-developed, well-nourished, slightly fatigued appearing male in no acute distress. HEAD: Normocephalic, atraumatic. EYES: Sclerae anicteric. MOUTH: Dry mucous membranes. No lesions. NECK: Supple with full range of motion. No adenopathy. LUNGS: Clear bilaterally. CARDIOVASCULAR: Heart rate regular, 92 per minute, without murmur. EXTREMITIES: No pedal edema. Decreased range of motion in both shoulders. NEUROLOGIC: Nonfocal. LABORATORY No lab. IMPRESSION AND PLAN The patient is a 48-year-old male with hemoglobin SC disease and chronic pain syndrome. 1. Sickle cell anemia. Overall, he has been doing fairly well. He is seen in our office for hydration as needed and he believes this has been helpful. He does not think he needs hydration today. 2. Chronic pain syndrome. Continue Fentanyl 150 mcg every 72 hours with Dilaudid 4 mg p.r.n. I have refilled both of these for him today. We again discussed the need to be proactive when taking the Dilaudid to control his pain. 3. Sleep issues. He continues on Zolpidem with occasional lorazepam. He thinks this is working well for him. 4. Neck discomfort. Continue Flexeril 5 mg p.r.n. He is not using this at this time. 5. Ortho. Patient with known avascular necrosis in both hips and shoulders. Last procedure on his right shoulder was in August 2016. He was referred back to Dr. Anderson for evaluation but did not go to this appointment. I have encouraged him to follow up with Dr. Anderson as soon as possible. 6. Type 2 diabetes. Continue metformin. 7. Hydration p.r.n. 8. Follow up with Dr. Weir on September 06, 2018, for continued care. ABDIAS
[~2018-09-06 09:00] MED LIST changes: +ASPI-1471 PO; -INFLUENZA VIRUS VAC 0.5ML SYR IM ONLY ONE; +LORA0.5P MC; -NS(*) 0.9% 1000 ML BAG 1,000 ML IV ONE
[2018-09-06 09:12] VITALS: BP 145/87
[2018-09-06] MEDS ORDERED: LORA0.5P MC (09:36)
[2018-09-06] MEDS ORDERED: ZOLP-1 PO (09:36)
[2018-09-06] MEDS ORDERED: HYDR-5517 PO (09:36)
[2018-09-06] MEDS ORDERED: CELE-1 PO (09:36)
[2018-09-06] MEDS ORDERED: FENT1PAT TD (09:36)
[2018-09-06] MEDS ORDERED: FENT1PAT40 TD (09:36)
[2018-09-06] MEDS ORDERED: GABA-549 PO (09:36)
--- NOTE | 2018-09-07 08:55 | SCHUSTER ONCOLOGY NOTE ---
EVENT DATE: September 06, 2018 CHIEF COMPLAINT/REASON FOR VISIT Mr. 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 HISTORY OF PRESENT ILLNESS Fernando returns. We have utilized fluids once or twice a week in the fall to reduce the severity and frequency of exacerbation and hospitalizations. We are not requiring that right now. His pain medication has been stable with a Fentanyl patch of 150 mcg as well as p.r.n. Dilaudid. He tries to use non- opiate medication for pain but has required this. We sent him to one of our sickle cell specialist, Dr. Lorenzo in [place], who agrees that we are dealing with a chronic pain syndrome. He has not kept followup with orthopedic yet. He does have severe sleep apnea and I encouraged CPAP but he is not using this still. In the past, we tried Hydrea but it was not helpful in reducing his exacerbations, which is not unusual for his subtype of sickle cell SC disease. No recent triggers, infections, fever or chills. I believe that traveling to different altitudes and coming back seem to trigger him. His biggest complaint continues to be right shoulder pain and I have encouraged him to follow up with [facility] at least once a year. He owed a small amount and has paid this so he should be able to follow up with them now. PAST MEDICAL/SURGICAL HISTORY 1. Sickle cell anemia with crisis. 2. Hemoglobin SC disease. 3. Diabetes mellitus. 4. GERD. 5. Chronic pain due to the orthopedic issues related to his sickle cell disease. 6. Sleep disordered breathing and following with Dr. Caldwell. FAMILY HISTORY The patient does have a sibling who from the disease as well as multiple siblings with the disease, some with hemoglobin SS disease and others with hemoglobin SC like the patient. SOCIAL HISTORY The patient works at [employer]. Never smoker. Denies significant alcohol use. REVIEW OF SYSTEMS CONSTITUTIONAL: No fevers, chills. Significant pain, but at his baseline. HEENT: No headache or vision changes. EXTREMITIES: Intermittent edema. MUSCULOSKELETAL: Chronic hip and shoulder pain with known avascular necrosis. CARDIOVASCULAR: No chest pain, dyspnea on exertion, acute chest syndrome symptoms. RESPIRATORY: No shortness of breath, wheeze, cough. GASTROINTESTINAL: No nausea or vomiting. GENITOURINARY: No dysuria or hematuria. PSYCHIATRIC: No anxiety or depression. ENDOCRINE: No heat or cold intolerance. SKIN: No concerning rashes or lesions. The remainder of the 14-point review of systems is otherwise negative. PHYSICAL EXAMINATION VITAL SIGNS: Blood pressure 124/90, pulse 93, respiratory rate 18, temperature 99 Fahrenheit, oxygen saturation 90% on room air, weight 112.4 kg. Pain 0/10. Fatigue 1/10. GENERAL: Stable condition, resting comfortably in the chair. HEENT: Normocephalic, atraumatic. MUSCULOSKELETAL: Chronic hip and shoulder pain with known avascular necrosis. EXTREMITIES: Trace edema today, although he does not mention it. CARDIOVASCULAR: Negative. LUNGS: Clear. ABDOMEN: Obese. The remainder of the physical exam is otherwise unremarkable. IMPRESSION/REPORT/PLAN Mr. Estevez is a very pleasant 48-year-old gentleman with the followin. Hemoglobin SC disease, sickle cell anemia. 2. History of multiple sickle cell crises. 3. Avascular necrosis of multiple joints. Recommend at least annual follow up with [facility]. 4. Chronic pain syndrome. 5. Severe sleep apnea. Recommend CPAP. Refilled his medications today. He is actually doing quite well most recently and we will try to continue this as long as possible. As noted, we will continue to use fluids once or twice a week if he begins to feel symptoms of an exacerbation. Billing: Return visit level 3. Total time 20 minutes and counseling time 15. MTDD
== END 2018-09-07 ==
LOC: ONC 09:00
PROVIDERS: ATTEND Internal Medicine
DX: D57.1 Sickle-cell disease without crisis (principal); Z23 Encounter for immunization; G89.4 Chronic pain syndrome; G47.30 Sleep apnea, unspecified; E11.9 Type 2 diabetes mellitus without complications; Z79.84 Long term (current) use of oral hypoglycemic drugs; K21.9 Gastro-esophageal reflux disease without esophagitis
CPT/HCPCS: 83036; 85025; 96360; 96409; 99212; J7030; 82040; 82247; 82310; 82374; 82435; 82565; 82947; 84075; 84132; 84155; 84295; 84450; 84460; 84520

== ENCOUNTER 2019-01-10 08:27 | Outpatient (RCR) | payer BC ==
[2015-03-30 12:35] VITALS: Wt 108.6 kg
[2018-10-14 08:39] VITALS: BP 122/85
[2018-10-14] MEDS: LIDOCAINE/SOD BICARB 8.4% SYR ID PRN (10:01)
[2018-10-14] MEDS: NS(*) 0.9% 1000 ML BAG 1,000 ML IV PRN (10:07)
--- NOTE | 2018-10-14 16:09 | ONCOLOGY FOLLOW UP NOTE ---
EVENT DATE: October 14, 2018 CHIEF COMPLAINT Mr. Estevez is a very pleasant 48-year old gentleman with sickle cell/SC disease here for followup. HISTORY OF PRESENT ILLNESS Fernando returns today for routine followup. We have utilized IV fluid hydration one to two times per week, most recently in the fall, in order to reduce the severity and frequency of his exacerbation and hospitalizations. He has not required that in some time now. He does report today that he was hospitalized approximately two to three weeks ago at [facility] due to sickle cell exacerbation/crisis. He reports that he was inpatient for at least four days. He was treated with IV fluids, pain medications, and also reports that he received an IV lidocaine drip. He tells me that he has never received that before and is unsure if this helped or not. 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 His pain has been stable, and his pain regimen has not been changed in a while. He is currently on fentanyl patch 150 mcg with Dilaudid p.r.n. for breakthrough pain. He does try to use non-opiate medication for pain, but has required this current regimen to keep him stable. He is also on gabapentin 600 mg t.i.d. as well as Flexeril. He did see one of our sickle cell specialists in [place], Dr. Lorenzo, who agrees that we are dealing with a chronic pain syndrome. Fernando reports that he did follow up with an orthopedist last year regarding his shoulder pain. He tells me that something was done to his shoulder, but he is not quite sure what. He has not followed up since that time. He has severe sleep apnea and tells me that he is being compliant with CPAP, though in the past had not been compliant. He have used Hydrea in the past, but this was not helpful in reducing his exacerbations, which is not unusual for his subtype of sickle cell disease. His biggest complaint today is bilateral shoulder pain with the right shoulder slightly worse than the left. He is also reporting significant bilateral hip pain. In the past, we have encouraged him to follow up with [facility] at least annually. He denies any recent triggers, to include no recent infections, fevers, or chills. Dr. Weir has seen the patient in the past and believed that traveling to different altitudes and coming back from these trips seem to be a trigger for him. Patient agrees with this. PAST MEDICAL/SURGICAL HISTORY 1. Sickle cell anemia with crisis. 2. Hemoglobin SC disease. 3. Diabetes mellitus. 4. GERD. 5. Chronic pain due to the orthopedic issues related to his sickle cell disease. 6. Sleep disordered breathing and following with Dr. Caldwell. FAMILY HISTORY The patient does have a sibling who from the disease, as well as multiple siblings with the disease, some with hemoglobin SS disease and others with hemoglobin SC like the patient. SOCIAL HISTORY The patient works at [employer]. Never smoker. Denies significant alcohol use. ALLERGIES TORADOL, MORPHINE. MEDICATIONS 1. Aspirin 81 mg daily. 2. Celebrex 200 mg p.o. b.i.d. 3. Fentanyl 150 mcg patch q.72 hours. 4. Folic acid 1 mg daily. 5. Furosemide 20 mg, half tablet daily p.r.n. 6. Gabapentin 600 mg p.o. t.i.d. 7. Dilaudid 4 mg tablet, one to two tablets every four to six hours p.r.n. pain. 8. Lisinopril 10 mg p.o. b.i.d. 9. Lorazepam 0.5 mg t.i.d. p.r.n. muscle spasms. 10. Skelaxin 800 mg p.o. t.i.d. 11. Metformin 500 mg one p.o. b.i.d. 12. Pantoprazole 40 mg tablet one p.o. q. day. 13. Promethazine 25 mg one p.o. q.8 hours p.r.n. nausea, vomiting. 14. Zolpidem 5 mg tablets, one p.o. at bedtime p.r.n. REVIEW OF SYSTEMS CONSTITUTIONAL: Patient denies any recent fevers, chills, or night sweats. No recent infections. He does have significant pain. This did flare up a couple of weeks ago, though this is now returning back to baseline. He does feel like he needs IV fluid hydration today, however. HEENT: No vision changes. No epistaxis. No tinnitus. No mouth sores. CARDIOVASCULAR: No chest pain. No syncope, presyncope, or palpitations. RESPIRATORY: No cough, sputum production, or hemoptysis. No pleuritic chest pain. He does have a history of sleep apnea and reports good compliance with CPAP at night. GASTROINTESTINAL: No abdominal pain, nausea, vomiting, constipation, diarrhea, bright red blood per rectum, or melena. Appetite is normal. GENITOURINARY: No dysuria, hematuria, or genitourinary discharge. NEUROLOGIC: No headaches or seizure-like activity. EXTREMITIES: He reports intermittent bilateral lower extremity edema. This is currently stable. PSYCHIATRIC: He denies any severe anxiety, severe depression, suicidal or homicidal ideation. SKIN: He denies any suspicious rash, lumps, or bumps. The remainder of a 12-point review of systems is performed today and is otherwise negative. PHYSICAL EXAMINATION VITAL SIGNS: T 97.1, P 89, R 16, BP 122/85. Oxygen saturation 90% room air. GENERAL: In general, this is a pleasant 48-year-old gentleman who appears well nourished and is in no acute distress. HEAD: Normocephalic, atraumatic. EYES: Sclerae anicteric. ENT, MOUTH: No mucositis or thrush. CARDIOVASCULAR: Regular rate and rhythm. No ectopy. LUNGS: Clear breath sounds to auscultation bilaterally. No wheezes, rales, or rhonchi. ABDOMEN: Soft, obese, nontender, nondistended. No organomegaly on cursory examination. EXTREMITIES: Only trace edema bilaterally. No clubbing or cyanosis. PSYCHIATRIC: Mood and affect are appropriate. NEUROLOGIC: Patient is awake, alert, oriented x3. No focal sensory or motor deficits. MUSCULOSKELETAL: Patient reports bilateral shoulder and bilateral hip pain. He does have known avascular necrosis. DERM: No rash. No petechiae or purpuric eruption. LABORATORY No labs today. Patient just had labs done two weeks ago while hospitalized, and we will obtain those records. Most recent CBC on 06/09/18: WBC 7.6, ANC 4.2, hemoglobin 13.4, hematocrit 40.9%, platelets 385,000. CMP at that time largely unremarkable. IMAGING Bilateral hip x-ray at [facility] on 01/15/18: 1. Continued findings of underlying osteonecrosis involving both femoral heads. 2. Mild osteoarthritic changes involving both hips. 3. No acute-appearing bony abnormalities. IMPRESSION AND PLAN Mr. Estevez is a very pleasant 48-year-old gentleman with the followin. Hemoglobin SC disease, sickle cell anemia. Recently had crisis requiring hospitalization about two or three weeks ago. He was hospitalized in [place]. Our office is going to obtain records. His pain has improved and is trending down, though he feels as though he may need some intravenous fluids today to help get him through. We will administer 1 L of normal saline intravenously today. I have written orders that state the patient may return to clinic next week for repeat intravenous fluid hydration for his sickle cell anemia if he is still having pain. 2. History of multiple sickle cell crises. See #1. 3. Avascular necrosis of multiple joints. I again explained to patient that we recommend at minimum annual followup with [facility]. Patient tells me that he will be calling them to schedule an appointment in the near future. 4. Chronic pain syndrome: Currently on fentanyl 150 mcg as well as Dilaudid 4 mg tablets, one to two every four to six hours as needed for breakthrough pain. These were just refilled two days ago. Recommended to patient that he notify our office at least 48 hours notice prior to running out of medications. Reminded him that these are controlled substances, and it is best not to run out and notify us with time. He verbalized understanding. 5. Chronic sleep apnea: He has CPAP at home. Reports good compliance, and I encouraged him to be diligent with compliance. 6. We will refill his atorvastatin and cyclobenzaprine today, x2 refills. 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 ABDIAS
[2018-11-08 10:44] VITALS: BP 146/89
--- NOTE | 2018-11-09 05:31 | ONCOLOGY FOLLOW UP NOTE ---
EVENT DATE: November 08, 2018 CHIEF COMPLAINT/REASON FOR VISIT Mr. Estevez is a pleasant 48-year-old gentleman with a sickle cell SC disease, here for followup. HISTORY OF PRESENT ILLNESS Mr. Estevez returns. Please see his history outlined below for more details. Overall, he is doing well. Unfortunately, he had another hospitalization at [facility] this last month. He continues to have pain and fatigue. He is having poor sleep. He is taking more pills recently. We had been giving IV fluids regularly, and this seemed to improve his exacerbations in the fall, but we stopped as he felt he no longer needed it. I feel we are getting increased frequency of issues and need to get back on a fluid prevention plan. He will agree with weekly and would like to come in tomorrow to get fluids again. PAST MEDICAL/SURGICAL HISTORY 1. Sickle cell anemia with crisis. 2. Hemoglobin SC disease. 3. Diabetes mellitus. 4. GERD. 5. Chronic pain due to the orthopedic issues related to his sickle cell disease. 6. Sleep disordered breathing and following with Dr. Caldwell. FAMILY HISTORY The patient does have a sibling who from the disease, as well as multiple siblings with the disease, some with hemoglobin SS disease and others with hemoglobin SC like the patient. SOCIAL HISTORY The patient works at [employer]. Never smoker. Denies significant alcohol use. ALLERGIES 1. TORADOL. 2. MORPHINE. MEDICATIONS 1. Aspirin 81 mg daily. 2. Celebrex 200 mg p.o. b.i.d. 3. Fentanyl 150 mcg patch q.72 hours. 4. Folic acid 1 mg daily. 5. Furosemide 20 mg, half tablet daily p.r.n. 6. Gabapentin 600 mg p.o. t.i.d. 7. Dilaudid 4 mg tablet, one to two tablets every four to six hours p.r.n. pain. 8. Lisinopril 10 mg p.o. b.i.d. 9. Lorazepam 0.5 mg t.i.d. p.r.n. muscle spasms. 10. Skelaxin 800 mg p.o. t.i.d. 11. Metformin 500 mg one p.o. b.i.d. 12. Pantoprazole 40 mg tablet one p.o. q. day. 13. Promethazine 25 mg one p.o. q.8 hours p.r.n. nausea, vomiting. 14. Zolpidem 5 mg tablets, one p.o. at bedtime p.r.n. REVIEW OF SYSTEMS CONSTITUTIONAL: No fevers or chills. Positive fatigue. No recent infections. HEENT: No headache or vision changes. MUSCULOSKELETAL: Positive shoulder and hip pains bilaterally, and chronic. Increased recently. CARDIOVASCULAR: No chest pain, dyspnea on exertion, or edema. They tried a lidocaine drip in the last hospitalization, which had minimal change, but thankfully no arrhythmias. RESPIRATORY: No shortness of breath, wheeze, or cough. GASTROINTESTINAL: No nausea or vomiting. GENITOURINARY: No dysuria or hematuria. SKIN: No concerning rash or lesions. NEUROLOGIC: No deficits. Remainder of 14-point review of systems otherwise negative. PHYSICAL EXAMINATION VITAL SIGNS: Blood pressure 146/89, pulse 94, respiratory rate 16, temperature 97.2 Fahrenheit, oxygen saturation 92% on room air. Weight 106.7 kg, pain 7/10, fatigue 10/10. GENERAL: Stable condition, resting comfortably in the chair. ECOG performance status 1. HEENT: Normocephalic, atraumatic. MUSCULOSKELETAL: Patient has decreased range of motion of his shoulders and hips due to avascular necrosis related to sickle cell. ABDOMEN: Obese, nontender. SKIN: No concerning rashes or lesions. EXTREMITIES: Trace edema. No significant edema. Remainder of physical exam otherwise unremarkable. IMPRESSION/REPORT/PLAN Mr. Estevez is a pleasant 48-year-old gentleman with the followin. Sickle cell SC disease. 2. Orthopedic issues related to sickle cell. 3. Multiple sickle exacerbations, including one right now. Plan to reinstitute the fluids weekly to try to prevent exacerbations. See him monthly. Answered all his questions today. BILLING Return visit level 4. Total time 30 minutes, counseling time 20. MTDD
[2018-11-09 10:22] VITALS: BP 140/89
[2018-11-09] MEDS: LIDOCAINE/SOD BICARB 8.4% SYR ID PRN (10:23)
[2018-11-09] MEDS: NS(*) 0.9% 1000 ML BAG 1,000 ML IV PRN (10:23)
[2018-11-16 12:10] VITALS: BP 138/89
[2018-11-16] MEDS: NS(*) 0.9% 1000 ML BAG 1,000 ML IV PRN (12:22)
[2018-12-15 13:00] VITALS: BP 134/83
[2018-12-15] MEDS: LIDOCAINE/SOD BICARB 8.4% SYR ID PRN (13:06)
[2018-12-15] MEDS: NS(*) 0.9% 1000 ML BAG 1,000 ML IV PRN (13:07)
--- NOTE | 2018-12-16 01:49 | ONCOLOGY FOLLOW UP NOTE ---
EVENT DATE: December 15, 2018 CHIEF COMPLAINT Followup for sickle cell SC disease. HISTORY OF PRESENT ILLNESS Patient is a 48-year-old male who was seen today in one-month followup. He continues with very chronic pain which is fairly overwhelming for him. He requests hydration today and will receive 1L of normal saline. He feels this helps somewhat. He continues on fentanyl 150 mcg as well as Dilaudid 4 mg. He denies any constipation or nausea. He does have diffuse arthralgias from sickle cell disease and avascular necrosis in both hips. MEDICAL HISTORY 1. Sickle cell anemia. 2. Hemoglobin SC disease. 3. Type 2 diabetes. 4. GERD. 5. Chronic pain due to avascular necrosis related to his sickle cell disease. 6. Sleep apnea, on CPAP. FAMILY HISTORY Brother of the disease. He has multiple siblings with the disease, some with hemoglobin SS disease and others with hemoglobin SC disease. SOCIAL HISTORY The patient is single. He has three grown daughters. He works at [employer] in [place]. He is a never smoker. He denies alcohol use or illicit drug use. MEDICATIONS 1. Dilaudid 4 mg one to two every six hours p.r.n. pain. 2. Fentanyl 150 mcg (50 mcg and 100 mcg patches) every 72 hours. 3. Lorazepam 0.5 mg p.r.n. 4. Zolpidem 5 mg at bedtime p.r.n. 5. Metformin 750 mg b.i.d. 6. Atorvastatin 40 mg daily. 7. Aspirin 81 mg daily. 8. Celebrex 200 mg b.i.d. 9. Skelaxin 800 mg b.i.d. 10. Flexeril 5 mg t.i.d. p.r.n. ALLERGIES KETORALAC and MORPHINE. REVIEW OF SYSTEMS A 12-point review of systems is performed and is negative except as stated above. PHYSICAL EXAMINATION VITAL SIGNS: Blood pressure 134/83, pulse 72, respirations 16, temperature 98.4, O2 saturation 90%. GENERAL: Patient is a well-developed, well-nourished male in no acute distress. He does have decreased range of motion in shoulders and hips. HEAD: Normocephalic, atraumatic. EYES: Sclerae anicteric. MOUTH: Slightly dry mucous membranes, but no lesions. LUNGS: Clear bilaterally. CARDIOVASCULAR: Heart rate regular, 72 per minute. EXTREMITIES: No edema. Decreased range of motion in both shoulders. NEUROLOGIC: Nonfocal. LABORATORY No lab today. IMPRESSION The patient is a 48-year-old male with hemoglobin SC disease and chronic pain syndrome. 1. Sickle cell anemia. Ongoing. He requests hydration today and will receive one unit of normal saline. He finds this somewhat helpful. 2. Chronic pain syndrome. Continue fentanyl 150 mcg every 72 hours with Dilaudid 4 mg p.r.n. Both of these have been refilled today. 3. Sleep issue. Continue on CPAP. He uses zolpidem with occasional lorazepam, which has worked well for him. 4. Arthralgias/muscle spasms. He will use Flexeril 5 mg as needed. 5. Type 2 diabetes. Continue metformin. 6. Follow up as scheduled for continued care, earlier if there is a problem. ABDIAS
--- NOTE | 2018-12-31 15:51 | NUR ---
SHUKRI emailed completed forms to [employer] on 12/28/18. SHUKRI rec'd a request from pt to contact [employer] and look into what errors were made on the previous form. SHUKRI spoke with [employer] rep who indicated that accomodations were denied because it was deemed that the pt had no restrictions. SHUKRI explained that the pt is usually hospitalized when he has to take leave, which would not fall under special accomodations. The rep agreed, if the pt is hospitalized then his leave would not be in question, as hospitalizations are processed differently. At this time, even though there was an error on the accomodations form which caused a denial, it does not appear that the pt's disability will be denied, as he is always hospitalized, and does not usually take time off aside from his hospitalizations.
[2019-01-10 08:33] VITALS: BP 151/90
[2019-01-10] MEDS ORDERED: FENT1PAT TD (09:24)
[2019-01-10] MEDS ORDERED: HYDR-5517 PO (09:24)
[2019-01-10] MEDS ORDERED: FENT1PAT40 TD (09:24)
--- NOTE | 2019-01-11 04:32 | ONCOLOGY FOLLOW UP NOTE ---
EVENT DATE: January 10, 2019 CHIEF COMPLAINT/REASON FOR VISIT Mr. Estevez is a pleasant 48-year-old gentleman with hemoglobin SC sickle cell anemia and chronic pain syndrome. HISTORY OF PRESENT ILLNESS Oswaldo caldera. Please see his history outlined below for more details. Overall, he is doing quite well. He did have another hospitalization since I last saw him two months ago. He continues to complain of right shoulder pain. Eventually, he will need to get joint replacements for his avascular necrosis related to sickle cell disease. We would like him to use IV fluids as needed to reduce the frequency of his exacerbations. We could also schedule it weekly. This is up to Fernando on how he would like to proceed with this. PAST MEDICAL/SURGICAL HISTORY 1. Sickle cell anemia with crisis. 2. Hemoglobin SC disease. 3. Diabetes mellitus. 4. GERD. 5. Chronic pain due to the orthopedic issues related to his sickle cell disease. 6. Sleep-disordered breathing and following with Dr. Caldwell. FAMILY HISTORY The patient does have a sibling who from the disease, as well as multiple siblings with the disease, some with hemoglobin SS disease and others with hemoglobin SC like the patient. SOCIAL HISTORY The patient works at [employer]. Never smoker. Denies significant alcohol use. ALLERGIES 1. TORADOL. 2. MORPHINE. MEDICATIONS 1. Aspirin 81 mg daily. 2. Celebrex 200 mg p.o. b.i.d. 3. Fentanyl 150 mcg patch q.72 hours. 4. Folic acid 1 mg daily. 5. Furosemide 20 mg, half tablet daily p.r.n. 6. Gabapentin 600 mg p.o. t.i.d. 7. Dilaudid 4 mg tablet, one to two tablets every four to six hours p.r.n. pain. 8. Lisinopril 10 mg p.o. b.i.d. 9. Lorazepam 0.5 mg t.i.d. p.r.n. muscle spasms. 10. Skelaxin 800 mg p.o. t.i.d. 11. Metformin 500 mg one p.o. b.i.d. 12. Pantoprazole 40 mg tablet one p.o. q. day. 13. Promethazine 25 mg one p.o. q.8 hours p.r.n. nausea, vomiting. 14. Zolpidem 5 mg tablets, one p.o. at bedtime p.r.n. REVIEW OF SYSTEMS CONSTITUTIONAL: No fevers or chills. Positive fatigue. No recent infections. HEENT: No headache or vision changes. MUSCULOSKELETAL: Positive shoulder and hip pains bilaterally, and chronic. Increased recently. CARDIOVASCULAR: No chest pain, dyspnea on exertion, or edema. They tried a lidocaine drip in the last hospitalization, which had minimal change, but thankfully no arrhythmias. RESPIRATORY: No shortness of breath, wheeze, or cough. GASTROINTESTINAL: No nausea or vomiting. GENITOURINARY: No dysuria or hematuria. SKIN: No concerning rash or lesions. NEUROLOGIC: No deficits. Remainder of 14-point review of systems otherwise negative. PHYSICAL EXAMINATION VITAL SIGNS: Blood pressure 151/90, pulse 92, respiratory rate 16, temperature 96.9 Fahrenheit, oxygen saturation 94% on room air. Weight 108.6 kg. Pain 3/10, fatigue 3/10, which are both better than his usual baseline. GENERAL: Stable condition, resting comfortably in the chair. HEENT: Normocephalic, atraumatic. EXTREMITIES: No clubbing, cyanosis, or edema. He has had issues with edema in the past. MUSCULOSKELETAL: Continues to have bilateral shoulder and hip pain. Examination of the right shoulder shows no significant change. Remainder of physical exam otherwise unremarkable. IMPRESSION/REPORT/PLAN Mr. Estevez is a pleasant 48-year-old gentleman with the followin. Hemoglobin SC disease. 2. Chronic pain syndrome. He has met with my colleague Dr. Lorenzo in [place] in the past. We have tried Hydrea in the past without success. He does get some benefit from periodic IV fluids in terms of reducing the frequency of his exacerbations. This is a chronic issue, and we will continue with his current regimen without any changes. Answered all of his questions. Will continue to see him monthly. ABDIAS
== END 2019-01-11 ==
LOC: ONC 08:27
PROVIDERS: ATTEND Internal Medicine
DX: D57.1 Sickle-cell disease without crisis (principal); I96 Gangrene, not elsewhere classified; G89.4 Chronic pain syndrome; G47.30 Sleep apnea, unspecified; Z79.899 Other long term (current) drug therapy; Z79.82 Long term (current) use of aspirin; E11.9 Type 2 diabetes mellitus without complications
CPT/HCPCS: 36415; 85027; 96360; 96361; 99212; 99213; J7030; 82040; 82247; 82310; 82374; 82435; 82565; 82947; 84075; 84132; 84155; 84295; 84450; 84460; 84520